=== PATIENT | female | born 1995 | race Caucasian/White ===

== ENCOUNTER 2018-09-18 03:20 | Inpatient (IN) | payer OTHER ==
[2018-09-18] MEDS ORDERED: PENICILLIN G-K 5 MILLION UNIT VIAL ONE ×2 (03:45→07:55)
[2018-09-18] MEDS ORDERED: OXYTOCIN 10 UNIT/ML VIAL ONE (03:46)
[2018-09-18] MEDS ORDERED: MISOPROSTOL 0.2 MG TABLET ONE (03:46)
[2018-09-18] MEDS ORDERED: OXYTOCIN/NORMAL SALINE 20 UNIT/1,000 ML RTUINJ ONE (03:46)
[2018-09-18] MEDS ORDERED: LIDOCAINE 1% INJ-PF (10 MG/ML) 30 ML SDV ONE (03:46)
[2018-09-18] MEDS: RINGERS SOLUTION,LACTATED 1,000 ML IV PRN ×3 (03:56→07:45)
[2018-09-18] MEDS ORDERED: RINGERS SOLUTION,LACTATED 1,000 ML IV ONE (04:00)
[2018-09-18] MEDS ORDERED: PENICILLIN G POTASSIUM 2,500,000 UNIT in DEXTROSE 5%-WATER 50 ML IV SCH (04:00)
[2018-09-18] MEDS ORDERED: PENICILLIN G POTASSIUM 5,000,000 UNIT in DEXTROSE 5%-WATER 100 ML IV ONE (04:00)
[2018-09-18 04:05] LABS: ABSOLUTE EOSINOPHILS # (AUTO) 0.1 10^3/uL (0.0-0.6); ABSOLUTE LYMPHOCYTES (AUTO) 1.8 10^3/uL (0.5-4.7); ABSOLUTE MONOCYTES (AUTO) 1.1 10^3/uL (0.1-1.4); ABSOLUTE NEUT (AUTO) 10.5 10^3/uL (1.7-8.2); BASOPHILS % (AUTO) 0.2 % (0-2); EOSINOPHILS % (AUTO) 0.9 % (0-6); HEMATOCRIT 32.5 % (36.0-47.0); HEMOGLOBIN 11.3 g/dL (12.0-15.5); LYMPHOCYTES % (AUTO) 13.3 % (13-45); MEAN CORPUSCULAR HEMOGLOBIN 30.1 pg (27.0-33.4); MEAN CORPUSCULAR HGB CONC 34.8 g/dL (32.0-36.0); MEAN CORPUSCULAR VOLUME 87 fl (80-97); MONOCYTES % (AUTO) 7.9 % (3-13); PLATELET COUNT 249 10^3/uL (150-450); RED BLOOD COUNT 3.75 10^6/uL (3.72-5.28); RED CELL DISTRIBUTION WIDTH 12.9 % (11.5-14.0); SEGMENTED NEUTROPHILS % (AUTO) 77.7 % (42-78); TOTAL CELLS COUNTED % (AUTO) 100 %; WHITE BLOOD COUNT 13.5 10^3/uL (4.0-10.5)
[2018-09-18 04:09] LABS: APPEARANCE,URINE CLEAR; BILIRUBIN,URINE NEGATIVE (NEGATIVE); COLOR,URINE STRAW; GLUCOSE, URINE NEGATIVE (NEGATIVE); KETONES,URINE NEGATIVE (NEGATIVE); LEUKOCYTE ESTERASE,URINE NEGATIVE (NEGATIVE); NITRITE,URINE NEGATIVE (NEGATIVE); PROTEIN,URINE NEGATIVE (NEGATIVE); URINE SPECIFIC GRAVITY 1.003; UROBILINOGEN,URINE NEGATIVE mg/dL (<2.0)
[2018-09-18 04:29] LABS: URINE AMPHETAMINES SCREEN NEGATIVE; URINE BARBITURATES SCREEN NEGATIVE; URINE BENZODIAZEPINES SCREEN NEGATIVE; URINE COCAINE SCREEN NEGATIVE; URINE MARIJUANA (THC) SCREEN NEGATIVE; URINE METHADONE SCREEN NEGATIVE; URINE PHENCYCLIDINE SCREEN NEGATIVE
[2018-09-18] MEDS ORDERED: EPHEDRINE SULFATE INJ 50 MG/1 ML AMPULE ONE (06:24)
[2018-09-18] MEDS ORDERED: FENTANYL/BUPIVACAINE/NS/PF 300 MCG/150 ML RTUINJ EPI ONE (06:25)
[2018-09-18] MEDS ORDERED: BUPIVACAINE HCL 0.5 % INJ/PF 30 ML SDV ONE (06:25)
[2018-09-18] MEDS ORDERED: BUPIVACAINE HCL 0.25 % INJ/PF (2.5 MG/1 ML) 30 ML VIAL ONE (06:26)
--- NOTE | 2018-09-18 07:28 | Admission Physical ---
Datetime Report Generated by CPN: 09/18/2018 07:27 CURRENT ADMISSION Chief Complaint: Uterine Contractions Indication for Induction: Not Applicable Admit Impression : Term, Intrauterine ; Active Labor Admit Plan: Admit to Unit; Initiate Labor Protocol ALLERGIES Medication Allergies: No Medication Allergies: No Known Allergies (09/18/2018) Latex: No Latex Allergies OBSTETRICAL HISTORY EDC: 09/18/2018 00:00 : 1 Para: 0 Term: 0 SAB: 0 IAB: 0 Ectopic: 0 Livin Cesareans: 0 VBACs: 0 Multiple Births: 0 Gestational Diabetes: No Rh Sensitization: No Incompetent Cervix: No PETER: No Infertility: No ART Treatment: No Uterine Anomaly: No IUGR: No Hx Previous C/S: No Macrosomia: No Hx Loss/Stillborn: No PIH: No Hx : No Placenta Previa/Abruption: No Depression/PP Depression: No PTL/PROM: No Post Hemorrhage: No Current Procedures: Ultrasound; NST Obstetrical History Comments: SEE RECORDS Alcohol: No Marijuana : No Cocaine: No Other Illicit Drugs: No Cigarettes: Never Smoker. [id number] MEDICAL HISTORY Diabetes: No Blood Transfusion: No Pulmonary Disease (Asthma, TB): No Breast Disease: No Hypertension: No Preanalytics Team Lead Surgery: No Heart Disease: No Hosp/Surgery: No Autoimmune Disorder: No Anesthetic Complications: No Kidney Disease: No Abnormal Pap Smear: No Neuro/Epilepsy: No Psychiatric Disorders: No Other Medical Diseases: No Hepatitis/Liver Disease: No Significant Family History: No Varicosities/Phlebitis: No Trauma/Violence : No Thyroid Dysfunction: No INFECTIOUS HISTORY Gonorrhea: No Genital Herpes: No Chlamydia: No Tuberculosis: No Syphilis: No Hepatitis: No HIV/AIDS Exposure: No Rash or Viral Illness: No HPV: No PHYSICAL EXAM General: Normal HEENT: Normal Neurologic: Normal Thyroid: Deferred Heart: Normal Lungs: Normal Breast: Deferred Back: Normal Abdomen: Normal Genitourinary Exam: Normal Extremities: Normal DTRs: Normal Pelvic Type: Adequate Vital Signs: Reviewed VAGINAL EXAM Dilatation: 4 Effacement: 80 Station: 0 MEMBRANES Membranes: Intact FETUS A EGA: 40.0 Monitoring: External US FHR- Baseline: 135 Variability: Moderate 6-25bpm Accelerations: 15X15 Decelerations: None Presentation: Vertex Admit Comment: 22yo at 40+0ega presents for active labor. GBS positive. PCN for GBS prophy. 4cm and active contractions. Admit to labor and delivery and anticipate . now s/p epidural and now with tachycardia - Dr. Virgen contacted for tachycardia. PLANS FOR LABOR AND DELIVERY Labor and Delivery: None Pain Management: Epidural Feeding Preference: Breast Benefit of Breast Feed Discussed: Yes Circumcision: N/A INFORMED CONSENT Informed Consent Obtained: Vaginal Delivery; Risks, Benefits and Alternatives Discussed Signature: with User ID: [email or web address]
--- NOTE | 2018-09-18 08:24 | EKG REPORT ---
SEVERITY:- OTHERWISE NORMAL ECG - SINUS TACHYCARDIA : Confirmed by: Kiersten Dunn MD 18-Sep-2018 08:23:04
--- NOTE | 2018-09-18 08:53 | L&D Progress Notes ---
PROGRESS NOTES Datetime Report Generated by CPN: 09/18/2018 08:52 PROGRESS NOTE Informed Consent Obtained: Vaginal Delivery; Risks, Benefits and Alternatives Discussed Comment: comfortable with epidural, irreg uc's, last extra, 5-6, 2nd dose of PCN, Cat 1 strip VAGINAL EXAM Dilatation: 4 Effacement: 80 Station: 0 LAST VAGINAL EXAM-NURSING Dilitation: 5-6 Dilitation: 4-5 Effacement: 80 Effacement: 80 Station: 0 Station: 0 MEMBRANES Membranes: Intact FETUS A Presentation: Vertex SIGNATURE SIGNATURE: ,[id number] SIGNATURE: [id number] Assignment: Albania Kingsley MD Signature: with User ID: [email or web address] : with User ID: [email or web address]
--- NOTE | 2018-09-18 10:31 | L&D Progress Notes ---
PROGRESS NOTES Datetime Report Generated by CPN: 09/18/2018 10:31 PROGRESS NOTE Comment: VE= complete, arom, clear fluid, will start pushing, Cat 1 strip VAGINAL EXAM Dilitation: 10.0 Effacement: 100 Station: 2 FETUS C SIGNATURE: [id number] Assignment: Albania Kingsley MD Signature: with User ID: [email or web address] : with User ID: [email or web address]
[2018-09-18] MEDS ORDERED: DIPH/PERTUSS(ACELL)/TETANUS VAC/PF 0.5 ML SYR (>=10YO) IM PRN ×2 (13:34→15:00)
[2018-09-18] MEDS ORDERED: BENZOCAINE/MENTHOL AEROSOL SPRAY 56 ML TOP PRN (13:34)
[2018-09-18] MEDS ORDERED: PROMETHAZINE HCL INJ 25 MG/1 ML VIAL IV PRN ×2 (13:34→15:00)
[2018-09-18] MEDS ORDERED: ACETAMINOPHEN WITH CODEINE #3 TABLET PO PRN ×2 (13:34)
[2018-09-18] MEDS ORDERED: DIPHENHYDRAMINE HCL 25 MG CAPSULE PO PRN (13:34)
[2018-09-18] MEDS ORDERED: PROMETHAZINE HCL 25 MG TABLET PO PRN (13:34)
[2018-09-18] MEDS ORDERED: PSEUDOEPHEDRINE HCL 30 MG TABLET PO PRN (13:34)
[2018-09-18] MEDS ORDERED: PROMETHAZINE HCL 25 MG SUPP.RECT PR PRN (13:34)
[2018-09-18] MEDS ORDERED: NA PHOS,M-B/NA PHOS,DI-BA (ADULT) 133 ML ENEMA PR PRN (13:34)
[2018-09-18] MEDS ORDERED: OXYTOCIN/NORMAL SALINE 20 UNIT/1,000 ML RTUINJ IV PRN (13:34)
[2018-09-18] MEDS ORDERED: MEASLES,MUMPS&RUBELLA VACC/PF 0.5 ML VIAL SUBCUT PRN ×2 (13:34→15:00)
[2018-09-18] MEDS ORDERED: GLYCERIN/WITCH HAZEL LEAF 1 EACH MED..PAD TP PRN (13:34)
[2018-09-18] MEDS ORDERED: DIBUCAINE 1% OINTMENT 28 GM TP PRN (13:34)
[2018-09-18] MEDS ORDERED: MAGNESIUM HYDROXIDE SUSP 30 ML UDCUP PO PRN (13:34)
[2018-09-18] MEDS ORDERED: ACETAMINOPHEN 650 MG SUPP.RECT PR PRN (13:34)
[2018-09-18] MEDS ORDERED: IBUPROFEN 800 MG TABLET ONE (14:12)
[2018-09-18] MEDS: IBUPROFEN 800 MG TABLET PO SCH ×2 (14:15→21:34)
[2018-09-18 14:36] LABS: HEMATOCRIT 30.9 % (36.0-47.0); HEMOGLOBIN 10.8 g/dL (12.0-15.5); MEAN CORPUSCULAR HEMOGLOBIN 29.9 pg (27.0-33.4); MEAN CORPUSCULAR HGB CONC 34.8 g/dL (32.0-36.0); MEAN CORPUSCULAR VOLUME 86 fl (80-97); PLATELET COUNT 223 10^3/uL (150-450); RED CELL DISTRIBUTION WIDTH 12.7 % (11.5-14.0); WHITE BLOOD COUNT 22.7 10^3/uL (4.0-10.5)
--- NOTE | 2018-09-18 14:38 | Delivery Summary ---
Del Sum A-C Datetime Report Generated by CPN: 09/18/2018 14:38 DELIVERY PERSONNEL DELIVERY PERSONNEL: [id number] Delivery Doctor:: Albania Kingsley MD Nurse Special Events Planner Certified:: Francoise Busch CNM Labor and Delivery Nurse:: Toshia Lin RN Labor and Delivery Nurse:: DARRYL Ruffin Nursery Nurse:: Hailee Centeno RN Predictive Maintenance Technician/COMPTOMETER OPERATOR: Kathryn Rees CST Predictive Maintenance Technician/COMPTOMETER OPERATOR: Helen Sheehan, BOOK CRITIC MATERNAL INFORMATION Delivery Anesthesia: Local; Epidural Medications After Delivery: Pitocin Bolus-Please Comment; Pitocin Drip 20 Units/1000ml NSS Maternal Complications: None Provider Comments: Dr. Kingsley called for VE due to maternal exhauston and runs of deep variables, vtx on perieum, VE applie by Dr. Kingsley, after delivery of vtx nuchal cord x 4, unable to reduce, clamped and cut with delivery of infant by Dr. Kingsley, spont delivery of placenta by me, grossly nl and intact, 2nd degree vaginal laceration repaired and left labial laceration repaired. cervix intact, rectum patent, FFFM, baby and mom in recovery in stable condition (Annotations: Data stored by N on behalf of user) LABOR SUMMARY EDC: 09/18/2018 00:00 No. Babies in Womb: 1 Attempted: No Labor Anesthesia: Epidural LABOR INFORMATION Reason for Induction: Not Applicable Onset of Labor: 09/18/2018 00:01 Complete Dilatation: 09/18/2018 10:26 Oxytocin: N/A Group B Beta Strep: positive Antibiotics # of Doses: 2 Antibiotics Time of Last Dose: 0800 Name of Antibiotic Given: PCN Steroids Given: None Reason Steroids Not Administered: Not Applicable MEMBRANES Membranes Rupture Method: Artificial Rupture of Membranes: 09/18/2018 10:26 Length of Rupture (hr): 2.08 Amniotic Fluid Color: Clear Amniotic Fluid Amount: Moderate Amniotic Fluid Odor: None STAGES OF LABOR Stage 1 hr: 10 Stage 1 min: 25 Stage 2 hr: 2 Stage 2 min: 5 Stage 3 hr: 0 Stage 3 min: 4 Total Time in Labor hr: 12 Total Time in Labor min: 34 VAGINAL DELIVERY Episiotomy: None Laceration #1: Vaginal; Periurethral Laceration Extension #1: Second Degree Other Laceration: LT PERIURETHRAL ABRASION Laceration Repair: Yes Laceration Repair Note: 2-0 and 3-0 vicryl Xylocaine 1% for repair Sponge Count Correct: N/A Sharps Count Correct: N/A BABY A INFORMATION Delivery Date/Time: 09/18/2018 12:31 Method of Delivery: Vaginal Born in Route : No : N/A Forceps: N/A Vacuum Extraction: N/A Shoulder Dystocia : No ASSISTED DELIVERY BABY A Catheter Prior to Procedure: No Position Vacuum/Forcep Apply: Left Occipital Anterior Vacuum Number of Pulls: 1 Vacuum Number of PopOffs: 0 Vacuum Maximum Pressure Obtained: 300 Reduce Pressure btwn Ctx: n/a Vacuum Transitions Manager Rn: kiwi Total Time Vacuum Applied: 25 seconds PRESENTATION/POSITION BABY A Presentation: Cephalic Cephalic Presentation: Vertex Vertex Position: Right Occipital Anterior Breech Presentation: N/A PLACENTA INFORMATION BABY A Placenta Delivery Time : 09/18/2018 12:35 Placenta Method of Delivery: Spontaneous Placenta Status: Delivered SCORES BABY A Heart Rate 1 min: >100 bpm Resp Effort 1 min: Good Cry Reflex Irritability 1 min: Cough or Sneeze or Pulls Away Muscle Tone 1 min: Some Flexion of Extremities Color 1 min: Blue/Pale Resuscitation Effort 1 min: Tactile Stimulation SCORE 1 MIN: 7 Heart Rate 5 min: >100 bpm Resp Effort 5 min: Good Cry Reflex Irritability 5 min: Cough or Sneeze or Pulls Away Muscle Tone 5 min: Active Motion Color 5 min: Body [place], Extremities Blue Resuscitation Effort 5 min: N/A SCORE 5 MIN: 9 Resuscitation Effort 10 min: N/A INFORMATION BABY A Gestational Age at Delivery: 40.0 Gestational Status: Full Term- 39- 40.6 Weeks Infant Outcome : Liveborn Condition : Stable Sex: Female IDENTIFICATION BABY A Infant Verification Date/Time: 09/18/2018 13:05 ID Band Number: [id number] Mother's Name Verified: Yes RN Verifying Infant: BL ROULUND, RN Additional Verifying Personnel: T LAURA, RN WEIGHT/LENGTH BABY A Birthweight (gm): 2911 Infant Weight (lb): 6 Infant Weight (oz): 7 Length (in): 20.50 Infant Length (cm): 52.07 CORD INFORMATION BABY A No. Cord Vessels: 3 Nuchal Cord : Tight nuchal x4 Cord Blood Taken: Yes-For Eval (Mom's Blood Type - or O+) (Annotations: Data stored by [facility] on behalf of user) Infant Suction: Mouth ASSESSMENT BABY A Complications: Multiple Variable Decels; Other Infant Complications- Other: nuchal x4 Respirations: Appears Normal Skin to Skin: Yes Skin to Skin Time (min): 100 Top Lift Nailer/ALS Called : No Care By: Hailee Centeno RN Transferred To: Remains with Mother BABY B INFORMATION : N/A
[2018-09-18] MEDS: FERROUS SULFATE 325 MG TABLET PO SCH (19:05)
[2018-09-18] MEDS: DOCUSATE SODIUM 100 MG CAPSULE PO SCH (19:05)
[2018-09-18] MEDS: FAMOTIDINE 20 MG TABLET PO SCH (21:34)
[2018-09-19] MEDS: IBUPROFEN 800 MG TABLET PO SCH ×3 (06:18→21:31)
[2018-09-19 06:36] LABS: HEMATOCRIT 28.9 % (36.0-47.0); HEMOGLOBIN 10.1 g/dL (12.0-15.5); MEAN CORPUSCULAR HEMOGLOBIN 30.4 pg (27.0-33.4); MEAN CORPUSCULAR HGB CONC 34.9 g/dL (32.0-36.0); MEAN CORPUSCULAR VOLUME 87 fl (80-97); PLATELET COUNT 221 10^3/uL (150-450); RED BLOOD COUNT 3.32 10^6/uL (3.72-5.28); WHITE BLOOD COUNT 16.4 10^3/uL (4.0-10.5)
--- NOTE | 2018-09-19 09:55 | PDOC PROGRESS REPORT ---
Subjective-OB Progress Note for:: 09/19/18 Subjective: Doing well, no c/o, hsb holding baby, voiding, scant bleeding Physical Exam (OB) Vital Signs: Temp Pulse Resp BP Pulse Ox 98.7 F 80 18 134/75 H 100 09/18/18 19:20 09/18/18 19:20 09/18/18 19:20 09/18/18 19:20 09/18/18 19:20 Intake & Output 09/18/18 09/19/18 09/20/18 06:59 06:59 06:59 Intake Total 131 735 Balance 131 735 Weight 75.3 kg - PIH/Pre-Eclampsia DTR's: 2 + Clonus: Negative Headache: Absent Epigastric Pain: No Visual Changes: No - Lochia Lochia Amount: Small 10-25 ml Lochia Color: Rubra/Red - Abdomen Description: Soft Hernia Present: No Fundal Description: Firm, Midline Fundal Height: u/3 - u/4 Objective-Diagnostic Laboratory: 09/19/18 06:30 09/18/18 09/19/18 14:24 06:30 WBC 22.7 H 16.4 H RBC 3.60 L 3.32 L Hgb 10.8 L 10.1 L Hct 30.9 L 28.9 L MCV 86 87 MCH 29.9 30.4 MCHC 34.8 34.9 RDW 12.7 13.0 Plt Count 223 221 Assessment and Plan(PN) - Assessment and Plan (1) Nuchal cord affecting delivery Is this a current diagnosis for this admission?: Yes (2) Vacuum extractor delivery, delivered Is this a current diagnosis for this admission?: Yes - Time Spent with Patient Time with patient: Less than 15 minutes Medications reviewed and adjusted accordingly: Yes - Disposition Anticipated Discharge: Home Within: within 24 hours
[2018-09-19] MEDS: FERROUS SULFATE 325 MG TABLET PO SCH ×2 (10:59→18:05)
[2018-09-19] MEDS: SENNOSIDES/DOCUSATE 8.6-50 MG 1 EACH TABLET PO SCH (10:59)
[2018-09-19] MEDS: DOCUSATE SODIUM 100 MG CAPSULE PO SCH ×2 (10:59→18:05)
[2018-09-19] MEDS: FAMOTIDINE 20 MG TABLET PO SCH ×2 (10:59→21:30)
[2018-09-19] MEDS: PRENATAL VITAMIN W DHA CAPSULE PO SCH (10:59)
[2018-09-20] MEDS: IBUPROFEN 800 MG TABLET PO SCH ×2 (05:42→13:22)
[2018-09-20 08:10] VITALS: BP 123/73
[2018-09-20] MEDS: DOCUSATE SODIUM 100 MG CAPSULE PO SCH (10:06)
[2018-09-20] MEDS: SENNOSIDES/DOCUSATE 8.6-50 MG 1 EACH TABLET PO SCH (10:06)
[2018-09-20] MEDS: FERROUS SULFATE 325 MG TABLET PO SCH (10:06)
[2018-09-20] MEDS: FAMOTIDINE 20 MG TABLET PO SCH (10:07)
[2018-09-20] MEDS: PRENATAL VITAMIN W DHA CAPSULE PO SCH (10:08)
--- NOTE | 2018-09-20 10:59 | PDOC PROGRESS REPORT ---
Subjective-OB Progress Note for:: 09/20/18 Subjective: Doing well, baby in room under bili lights, doing well, voiding, ambulating Physical Exam (OB) Vital Signs: Temp Pulse Resp BP Pulse Ox 98.0 F 90 18 123/73 99 09/20/18 10:37 09/20/18 10:37 09/20/18 10:37 09/20/18 07:29 09/20/18 10:37 Intake & Output 09/19/18 09/20/18 09/21/18 06:59 06:59 06:59 Intake Total 735 600 Balance 735 600 - PIH/Pre-Eclampsia DTR's: 2 + Clonus: Negative Headache: Absent Epigastric Pain: No Visual Changes: No - Lochia Lochia Amount: Scant < 10 ml Lochia Color: Rubra/Red - Abdomen Description: Soft Hernia Present: No Fundal Description: Firm, Midline Fundal Height: u/u - u/2 Objective-Diagnostic Laboratory: 09/19/18 06:30 Assessment and Plan(PN) - Assessment and Plan (1) Nuchal cord affecting delivery Is this a current diagnosis for this admission?: Yes (2) Vacuum extractor delivery, delivered Is this a current diagnosis for this admission?: Yes - Time Spent with Patient Time with patient: Less than 15 minutes Medications reviewed and adjusted accordingly: Yes - Disposition Anticipated Discharge: Home Within: within 24 hours
--- NOTE | 2018-09-20 11:04 | PDOC DISCHARGE SUMMARY ---
Final Diagnosis Discharge Date: 09/20/18 - Final Diagnosis (1) Nuchal cord affecting delivery Is this a current diagnosis for this admission?: Yes (2) Vacuum extractor delivery, delivered Is this a current diagnosis for this admission?: Yes Discharge Data - Discharge Medication Home Medications: No122/Iron/Folic Acid [ Multi Tablet] 1 each PO DAILY 09/18/18 Gestational Age: 40 Reason(s) for Admission: Onset of Labor, Group B Strep Positive Procedures: NST, Ultrasound Intrapartum Procedure(s): Vacuum Extraction Intrapartum Procedure Note: nuchal cord x 4 Complication(s): Laceration-Vaginal, Laceration-Labial Laceration-Degree: 2nd - Diagnosis Test Laboratory: Temp Pulse Resp BP Pulse Ox 98.0 F 90 18 123/73 99 09/20/18 10:37 09/20/18 10:37 09/20/18 10:37 09/20/18 07:29 09/20/18 10:37 09/18/18 09/18/18 09/18/18 03:35 03:54 14:24 RBC 3.75 3.60 L Hgb 11.3 L 10.8 L Hct 32.5 L 30.9 L Urine Opiates Screen NEGATIVE 09/19/18 06:30 RBC 3.32 L Hgb 10.1 L Hct 28.9 L Urine Opiates Screen - Discharge information/Instructions Discharge Activity: Activity As Tolerated, No Lifting Over 10 Pounds, No Lifting/Push/Pulling, Pelvic Rest Discharge Diet: As Tolerated, Regular Disposition: HOME, SELF-CARE Follow up with: [facility] in: 2, Weeks - baby under bili lights, [facility] room
[2018-09-20 11:37] LABS: HEMATOCRIT 29.9 % (36.0-47.0); HEMOGLOBIN 10.2 g/dL (12.0-15.5); MEAN CORPUSCULAR HEMOGLOBIN 30.1 pg (27.0-33.4); MEAN CORPUSCULAR HGB CONC 34.1 g/dL (32.0-36.0); MEAN CORPUSCULAR VOLUME 88 fl (80-97); PLATELET COUNT 241 10^3/uL (150-450); RED BLOOD COUNT 3.39 10^6/uL (3.72-5.28); RED CELL DISTRIBUTION WIDTH 13.3 % (11.5-14.0); WHITE BLOOD COUNT 14.5 10^3/uL (4.0-10.5)
== END 2018-09-20 16:35 | disposition home or self-care (01) | DRG 807 ==
LOC: LC 03:20 → LR 03:48 → 2S 15:32
PROVIDERS: ADMIT Obstetrics & Gynecology; ATTEND Obstetrics & Gynecology
PROC: 10D07Z6 Extraction of Products of Conception, Vacuum, Via Natural or Artificial Opening (ICD-10-PCS; principal; 2018-09-18)
PROC: 0KQM0ZZ Repair Perineum Muscle, Open Approach (ICD-10-PCS; 2018-09-18)
DX: O75.81 Maternal exhaustion complicating labor and delivery (principal); Z37.0 Single live birth; O69.1XX0 Labor and delivery complicated by cord around neck, with compression, not applicable or unspecified; O76 Abnormality in fetal heart rate and rhythm complicating labor and delivery; O70.1 Second degree perineal laceration during delivery; O70.0 First degree perineal laceration during delivery; O99.824 Streptococcus B carrier state complicating childbirth; Z3A.40 40 weeks gestation of pregnancy
CPT/HCPCS: 36415; 80307; 81005; 85025; 85027; 86592; 86850; 86900; 86901; 93005; 93010; J2540; J2590; J3010; J3490

== ENCOUNTER 2018-10-01 09:16 | Inpatient (IN) | payer OTHER ==
--- NOTE | 2018-10-01 09:55 | ER Document Report ---
ED General - General Chief Complaint: Abdominal Pain Stated Complaint: COLD SYMPTOMS Time Seen by Provider: 10/01/18 09:39 Notes: 22-year-old female to the emergency department chief complaint of tachycardia, shortness of breath and abdominal pain. Patient states that she woke up with the symptoms. [place] like she had a fever. Temperature at home 102. Heart was beginning to race. Patient states that she has had her heart race before rece ntly when she had the epidural. Currently when she arrived at triage her heart rate was in the 170s-180s. Patient complaining of some shortness of breath. Pain in the abdomen located in the right mid abdomen area. Hurts to push. Questionably radiating up into her right side of her chest. Currently afebrile. Patient is thirsty. Patient is breast-feeding. Never had a pulmonary embolism or DVT. Denies any leg pain or swelling. No other major issues during . Patient is 2 weeks . It is rated as a 4/5 on a numeric pain scale. It is allergic to ibuprofen. TRAVEL OUTSIDE OF THE [place] IN LAST 30 DAYS: No - HPI Onset: Just prior to arrival Onset/Duration: Sudden Quality of pain: Sharp, Stabbing Severity: Moderate Pain Level: 3 Associated symptoms: Chills, Fever, Shortness of breath - Related Data Allergies/Adverse Reactions: No Known Allergies Allergy (Verified 10/01/18 09:17) Past Medical History - General Information source: Patient - Social History Smoking Status: Never Smoker Frequency of alcohol use: None Drug Abuse: None Lives with: Spouse/Significant other Family History: Reviewed & Not Pertinent - Medical History Medical History: Negative Review of Systems - Review of Systems Constitutional: Fever. denies: Malaise, Weakness EENT: denies: Double vision, Difficulty swallowing, Throat swelling Cardiovascular: Chest pain, Heart racing, Lightheaded Respiratory: Short of breath. denies: Cough, Hurts to breathe, Wheezing Gastrointestinal: Abdominal pain. denies: Diarrhea, Nausea, Vomiting Genitourinary: denies: Burning, Dysuria, Discharge, Flank pain Female Genitourinary: Other - 2 weeks. denies: Vaginal discharge, Vaginal bleeding Musculoskeletal: denies: Back pain, Joint pain, Muscle stiffness, Leg swelling, Ankle swelling Hematologic/Lymphatic: denies: Anemia, Blood clots, Easy bleeding, Easy bruising Neurological/Psychological: denies: Confusion, Weakness, Seizure, Headaches, Numbness Physical Exam - Vital signs Vitals: Temp Pulse Resp BP Pulse Ox 98.8 F 185 H 16 138/82 H 100 10/01/18 09:23 10/01/18 09:23 10/01/18 09:23 10/01/18 09:23 10/01/18 09:23 Interpretation: Tachycardic - General General appearance: Appears well, Alert, Anxious - HEENT Head: Normocephalic, Atraumatic Eyes: Normal Pupils: PERRL - Respiratory Respiratory status: No respiratory distress Chest status: Nontender Breath sounds: Normal Chest palpation: Normal - Cardiovascular Rhythm: Tachycardia Heart sounds: Normal auscultation Murmur: No - Abdominal Inspection: Normal Distension: No distension Bowel sounds: Normal Tenderness: Nontender Organomegaly: No organomegaly - Back Back: Normal, Nontender - Extremities General upper extremity: Normal inspection, Nontender, Normal color, Normal ROM, Normal temperature General lower extremity: Normal inspection, Nontender, Normal color, Normal ROM, Normal temperature, Normal weight bearing. No: Ibrahima's sign - Neurological Neuro grossly intact: Yes Cognition: Normal Orientation: AAOx4 Rochelle Coma Scale Eye Opening: Spontaneous [place] Coma Scale Verbal: Oriented Rochelle Coma Scale Motor: Obeys Commands Nel Coma Scale Total: 15 Speech: Normal Motor strength normal: LUE, RUE, LLE, RLE Sensory: Normal - Psychological Associated symptoms: Normal affect, Normal mood - Skin Skin Temperature: Warm Skin Moisture: Dry Skin Color: Normal Course - Re-evaluation Re-evalutation: 10/01/18 10:51 At this time very concerning based on the fact the patient has extremely elevated heart rate and describing some dyspnea. Patient is obviously high risk for PE. Also having abdominal pain. Sometimes PEs can present as abdominal pain so will get CT angios as well as a CT abdomen as she does have some right lower quadrant/right mid abdomen tenderness with fever and a white blood cell count. Also could have endometritis being that she is so we will do the CT scan of the chest abdomen and pelvis. Her blood count elevated at 16,000 and mildly elevated lactate so we will recycle the lactic acids. 10/01/18 14:[address] mosqueda with [facility]. Will recommend she goes home on Augmentin, Tylenol and follow-up in the office. At this time patient's lactate is normalized. Patient feels much better. No PE or signs of significant abdominal pathology. We have treated with Rocephin. Patient seems comfortable with this plan. Will discharge shortly in stable condition. - Vital Signs Vital signs: Temp Pulse Resp BP Pulse Ox 98.8 F 185 H 15 123/80 100 10/01/18 09:23 10/01/18 09:23 10/01/18 11:43 10/01/18 11:43 10/01/18 11:43 - Laboratory Result Diagrams: 10/01/18 09:42 10/01/18 09:42 Laboratory results interpreted by me: 10/01/18 10/01/18 10/01/18 09:42 09:42 09:42 WBC 16.3 H Hgb 11.6 L Hct 34.2 L Seg Neutrophils % 81.5 H Lymphocytes % 12.4 L Absolute Neutrophils 13.3 H Lactic Acid 2.7 H Calcium 11.3 H Alkaline Phosphatase 170 H Creatine Kinase < 20 L Urine Ketones Urine Blood Ur Leukocyte Esterase 10/01/18 10:34 WBC Hgb Hct Seg Neutrophils % Lymphocytes % Absolute Neutrophils Lactic Acid Calcium Alkaline Phosphatase Creatine Kinase Urine Ketones TRACE H Urine Blood LARGE H Ur Leukocyte Esterase LARGE H Critical Care Note - Critical Care Note Total time excluding time spent on procedures (mins): 45 Discharge - Discharge Clinical Impression: Acute pyelonephritis Condition: Good Disposition: HOME, SELF-CARE Instructions: Pyelonephritis ([facility]) Additional Instructions: In the event that your symptoms are getting worse, your heart is racing, you have shortness of breath, worsening abdominal pain or pelvic pain or any other concerns please return immediately. Please follow-up with [facility] as soon as possible for repeat evaluation. Take your antibiotics as prescribed. As advised, we recommend using a breast pump for the next 24 hours and feeding your formula for the next 48 hours. Prescriptions: Amox Tr/Potassium Clavulanate [Augmentin 875-125 mg Tablet] 1 tab PO BID 14 Days #28 tablet Referrals: GABRIEL CHACKO MD [ACTIVE STAFF] - Follow up tomorrow
[2018-10-01] MEDS: NORMAL SALINE 1000 ML 1,000 ML IV PRN ×2 (09:56→12:20)
[2018-10-01] MEDS ORDERED: ACETAMINOPHEN 325 MG TABLET PO ONE (10:03)
--- NOTE | 2018-10-01 10:25 | EKG REPORT ---
SEVERITY:- ABNORMAL ECG - SVT REPOL ABNRM SUGGESTS ISCHEMIA, DIFFUSE LEADS PROLONGED QT INTERVAL : Confirmed by: Myra Franco 01-Oct-2018 10:25:03
[2018-10-01 10:26] LABS: ABSOLUTE EOSINOPHILS # (AUTO) 0.1 10^3/uL (0.0-0.6); ABSOLUTE MONOCYTES (AUTO) 0.8 10^3/uL (0.1-1.4); ABSOLUTE NEUT (AUTO) 13.3 10^3/uL (1.7-8.2); BASOPHILS % (AUTO) 0.3 % (0-2); EOSINOPHILS % (AUTO) 0.7 % (0-6); HEMATOCRIT 34.2 % (36.0-47.0); HEMOGLOBIN 11.6 g/dL (12.0-15.5); LYMPHOCYTES % (AUTO) 12.4 % (13-45); MEAN CORPUSCULAR HEMOGLOBIN 29.7 pg (27.0-33.4); MEAN CORPUSCULAR HGB CONC 33.8 g/dL (32.0-36.0); MEAN CORPUSCULAR VOLUME 88 fl (80-97); MONOCYTES % (AUTO) 5.1 % (3-13); PLATELET COUNT 402 10^3/uL (150-450); RED CELL DISTRIBUTION WIDTH 12.9 % (11.5-14.0); SEGMENTED NEUTROPHILS % (AUTO) 81.5 % (42-78); TOTAL CELLS COUNTED % (AUTO) 100 %; WHITE BLOOD COUNT 16.3 10^3/uL (4.0-10.5)
[2018-10-01 10:45] LABS: ALANINE AMINOTRANSFERASE 23 U/L (9-52); ALBUMIN 4.3 g/dL (3.5-5.0); ALKALINE PHOSPHATASE 170 U/L (38-126); ANION GAP 11 (5-19); ASPARTATE AMINO TRANSFERASE 24 U/L (14-36); BILIRUBIN,DIRECT 0.1 mg/dL (0.0-0.4); BILIRUBIN,TOTAL 0.4 mg/dL (0.2-1.3); BLOOD UREA NITROGEN 7 mg/dL (7-20); CALCIUM 11.3 mg/dL (8.4-10.2); CARBON DIOXIDE 25 mmol/L (22-30); CHLORIDE 104 mmol/L (98-107); GLUCOSE 99 mg/dL (75-110); POTASSIUM 3.6 mmol/L (3.6-5.0); SODIUM 139.8 mmol/L (137-145); TOTAL PROTEIN 7.3 g/dL (6.3-8.2)
[2018-10-01 10:47] LABS: CREATINE KINASE < 20 U/L (30-135)
[2018-10-01 10:48] LABS: A TYPE INFLUENZA AG NEGATIVE (NEGATIVE)
[2018-10-01 10:49] LABS: APPEARANCE,URINE SLIGHTLY-CLOUDY; BILIRUBIN,URINE NEGATIVE (NEGATIVE); COLOR,URINE YELLOW; GLUCOSE, URINE NEGATIVE (NEGATIVE); KETONES,URINE TRACE mg/dL (NEGATIVE); LEUKOCYTE ESTERASE,URINE LARGE (NEGATIVE); NITRITE,URINE NEGATIVE (NEGATIVE); PROTEIN,URINE NEGATIVE (NEGATIVE); URIC ACID CRYSTALS,URINE FEW /HPF; URINE SPECIFIC GRAVITY 1.005; UROBILINOGEN,URINE NEGATIVE mg/dL (<2.0)
[2018-10-01 10:49] LABS: B INFLUENZA AG NEGATIVE (NEGATIVE)
--- NOTE | 2018-10-01 10:50 | RADIOLOGY REPORT (SQ) ---
EXAM DESCRIPTION: CHEST SINGLE VIEW COMPLETED DATE/TIME: 10/01/2018 10:43 am REASON FOR STUDY: sob COMPARISON: None. EXAM PARAMETERS: NUMBER OF VIEWS: One view. TECHNIQUE: Single frontal radiographic view of the chest acquired. RADIATION DOSE: NA LIMITATIONS: None. FINDINGS: LUNGS AND PLEURA: No opacities, masses or pneumothorax. No pleural effusion. MEDIASTINUM AND HILAR STRUCTURES: No masses. Contour normal. HEART AND VASCULAR STRUCTURES: Heart normal in size. Normal vasculature. BONES: No acute findings. HARDWARE: None in the chest. OTHER: No other significant finding. IMPRESSION: NO ACUTE RADIOGRAPHIC FINDING IN THE CHEST. TECHNICAL DOCUMENTATION: JOB ID: [id number] [employer] ([employer])- All Rights Reserved Reading location - IP/workstation name: [email or web address]
[2018-10-01 10:56] LABS: CREATINE KINASE MB < 0.22 ng/mL (<4.55); TROPONIN I < 0.012 ng/mL
[2018-10-01] MEDS ORDERED: CEFTRIAXONE INJ 1000 MG VIAL IV ONE (11:46)
--- NOTE | 2018-10-01 12:11 | RADIOLOGY REPORT (SQ) ---
EXAM DESCRIPTION: CT ABD/PELVIS WITH IV ONLY COMPLETED DATE/TIME: 10/01/2018 11:30 am REASON FOR STUDY: right sided abd pain, fever and tachyc COMPARISON: None. TECHNIQUE: CT scan of the abdomen and pelvis performed using helical scanning technique with dynamic intravenous contrast injection. No oral contrast. Images reviewed with lung, soft tissue, and bone windows. Reconstructed coronal and sagittal MPR images reviewed. Delayed images for evaluation of the urinary system also acquired. All images stored on PACS. All CT scanners at this facility use dose modulation, iterative reconstruction, and/or weight based d osing when appropriate to reduce radiation dose to as low as reasonably achievable (ALARA). [facility]: Dose Right [facility]: CareDose [facility]: Dose Right [facility]: Teradose 4D [facility]: ConnectTo[employer] CONTRAST TYPE AND DOSE: 67 mL Omnipaque 350- low osmolar. RENAL FUNCTION: BUN 7 creatinine 0.71. RADIATION DOSE: . LIMITATIONS: None. FINDINGS: LOWER CHEST: No significant findings. No nodules or infiltrates. LIVER: Normal size. No masses. No dilated ducts. SPLEEN: Normal size. No focal lesions. PANCREAS: No masses. No significant calcifications. No adjacent inflammation or peripancreatic fluid collections. Pancreatic duct not dilated. GALLBLADDER: No identified stones by CT criteria. No inflammatory changes to suggest cholecystitis. ADRENAL GLANDS: No significant masses or asymmetry. RIGHT KIDNEY AND URETER: No solid masses. No significant calcifications. No hydronephrosis or hyd roureter. LEFT KIDNEY AND URETER: No solid masses. No significant calcifications. No hydronephrosis or hydr oureter. AORTA AND VESSELS: No aneurysm. No dissection. Renal arteries, SMA, celiac without stenosis. RETROPERITONEUM: No retroperitoneal adenopathy, hemorrhage or masses. BOWEL AND PERITONEAL CAVITY: No masses or inflammatory changes. No free fluid or peritoneal masses. APPENDIX: Not visualized. PELVIS: uterus. Fluid in the endometrial cavity. No mass. No free fluid. Normal bladder . ABDOMINAL WALL: No masses. No hernias. BONES: No significant or acute findings. OTHER: No other significant finding. IMPRESSION: UTERUS. NO SIGNIFICANT OR ACUTE FINDING IN THE ABDOMEN OR PELVIS ON CT SCAN WITH IV CONTRAST. TECHNICAL DOCUMENTATION: JOB ID: [id number] Quality ID # [id number]: Final reports with documentation of one or more dose reduction techniques (e.g., Au tomated exposure control, adjustment of the mA and/or kV according to patient size, use of iterative reconstruction technique) 2010 [employer]- All Rights Reserved Reading location - IP/workstation name: [email or web address]
--- NOTE | 2018-10-01 12:14 | RADIOLOGY REPORT (SQ) ---
EXAM DESCRIPTION: CTA CHEST COMPLETED DATE/TIME: 10/01/2018 11:30 am REASON FOR STUDY: sob, tachy COMPARISON: None. TECHNIQUE: CT scan of the chest performed using helical scanning technique with dynamic intravenous contrast injection. Images reviewed with lung, soft tissue and bone windows. Reconstructed coronal and sagittal MPR images reviewed. Additional 3 dimensional post-processing performed to develop Maximal Intensity Projection images (AR P). All images stored on PACS. All CT scanners at this facility use dose modulation, iterative reconstruction, and/or weight based d osing when appropriate to reduce radiation dose to as low as reasonably achievable (ALARA). [facility]: Dose Right [facility]: CareDose [facility]: Dose Right [facility]: Teradose 4D [facility]: [place] [employer] CONTRAST TYPE AND DOSE: contrast/concentration: Isovue 350.00 mg/ml; Total Contrast Delivered: 67.0 ml; Total Saline Delivered: 90.0 ml Contrast bolus adequate for pulmonary arteries and aorta. RENAL FUNCTION: BUN 7 creatinine 0.71. RADIATION DOSE: CT Rad equipment meets quality standard of care and radiation dose reduction techniq ues were employed. CTDIvol: 11.9 - 14.4 mGy. DLP: 1961 mGy-cm. . LIMITATIONS: None. FINDINGS: LUNGS AND PLEURA: No masses, infiltrates, or pneumothorax. No pleural effusions or pleura l calcifications. AORTA AND GREAT VESSELS: No aneurysm. No dissection. HEART: No pericardial effusion. No significant coronary artery calcifications. PULMONARY ARTERIES: No emboli visualized in the main pulmonary arteries or the segmental branches. HILAR AND MEDIASTINAL STRUCTURES: No identified masses or abnormal nodes. HARDWARE: None in the chest. UPPER ABDOMEN: No significant findings. Limited exam. THYROID AND OTHER SOFT TISSUES: No masses. No adenopathy. BONES: No acute or significant finding. 3D MIPS: Confirm above findings. OTHER: No other significant finding. IMPRESSION: NORMAL CTA OF THE CHEST. NO PULMONARY EMBOLI. COMMENT: Quality ID # [id number]: Final reports with documentation of one or more dose reduction techniques (e.g., Automated exposure control, adjustment of the mA and/or kV according to patient size, use of iterative reconstruction technique) TECHNICAL DOCUMENTATION: JOB ID: [id number] [employer]- All Rights Reserved Reading location - IP/workstation name: [email or web address] [id number]
[2018-10-01] MEDS ORDERED: NORMAL SALINE 500 ML IV ONE ×2 (12:41→15:18)
--- NOTE | 2018-10-01 15:55 | PDOC H&P ---
History of Present Illness Admission Date/PCP: 10/01/18 15:34 Patient complains of: She complains of fever on and off for 3-4 days and right lower quadrant tenderness History of Present Illness: STEW LÓPEZ is a 22 year old presents [facility], complaining of fever and chills on and off for 3-4 days. Patient awoke this morning with right lower quadrant tenderness. She is status post vacuum-assisted vaginal delivery on September 18. She is breast-feeding, which is going well. She has had no change in her lochia. She denies any foul odor or change in color. Patient stated that she did have some nausea today. She denies vomiting. She denies diarrhea. She is eating, voiding and ambulating without difficulty. Past Medical History LMP: post Sep 18 Gynecological Infection: No 1 Baby 1 Delivery: Vacuum Extraction Past Surgical History Past Surgical History: Reports: None Social History Lives with: Spouse/Significant other Smoking Status: Never Smoker Frequency of Alcohol Use: Rare Hx Recreational Drug Use: No Hx Prescription Drug Abuse: No Family History Family History: Reviewed & Not Pertinent Parental Family History Reviewed: No - N/A Children Family History Reviewed: NA Sibling(s) Family History Reviewed.: NA Medication/Allergy Home Medications: No122/Iron/Folic Acid [ Multi Tablet] 1 each PO DAILY 09/18/18 Amox Tr/Potassium Clavulanate [Augmentin 875-125 mg Tablet] 1 tab PO BID 14 Days #28 tablet 10/01/18 Allergies/Adverse Reactions: No Known Allergies Allergy (Verified 10/01/18 09:17) Review of Systems Constitutional: PRESENT: chills, fever(s) Cardiovascular: ABSENT: as per HPI, chest pain, dyspnea on exertion, edema, orthropnea, palpitations, other Respiratory: ABSENT: as per HPI, cough, dyspnea, hemoptysis, sputum, other Gastrointestinal: PRESENT: abdominal pain - Right lower quadrant, nausea Genitourinary: ABSENT: as per HPI, difficulty urinating, dysuria, hematuria, nocturia, other Physical Exam - Physical Exam Vital Signs: Temp Pulse Resp BP Pulse Ox 98.8 F 185 H 15 123/80 100 10/01/18 09:23 10/01/18 09:23 10/01/18 11:43 10/01/18 11:43 10/01/18 11:43 Intake & Output 09/30/18 10/01/18 10/02/18 06:59 06:59 06:59 Intake Total 2500 Balance 2500 Weight 66.4 kg General appearance: PRESENT: no acute distress Respiratory exam: PRESENT: clear to auscultation darcy Cardiovascular exam: PRESENT: RRR, tachycardia GI/Abdominal exam: PRESENT: normal bowel sounds, soft, tenderness - Mild, right lower quadrant Extremities exam: ABSENT: calf tenderness, clubbing, full ROM, joint swelling, pedal edema, tenderness, +1 edema, +2 edema, other - Gynecological Exam Vagina: normal Uterus: normal - Mild right lower quadrant tenderness, may be associated with uterus Result Laboratory Results: 10/01/18 09:42 10/01/18 09:42 10/01/18 10/01/18 10/01/18 09:42 09:42 09:42 WBC 16.3 H RBC 3.90 Hgb 11.6 L Hct 34.2 L MCV 88 MCH 29.7 MCHC 33.8 RDW 12.9 Plt Count 402 Seg Neutrophils % 81.5 H Lymphocytes % 12.4 L Monocytes % 5.1 Eosinophils % 0.7 Basophils % 0.3 Absolute Neutrophils 13.3 H Absolute Lymphocytes 2.0 Absolute Monocytes 0.8 Absolute Eosinophils 0.1 Absolute Basophils 0.0 Sodium 139.8 Potassium 3.6 Chloride 104 Carbon Dioxide 25 Anion Gap 11 BUN 7 Creatinine 0.71 Est GFR ( Amer) > 60 Est GFR (Non-Af Amer) > 60 Glucose 99 Lactic Acid Calcium 11.3 H Total Bilirubin 0.4 AST 24 ALT 23 Alkaline Phosphatase 170 H Total Protein 7.3 Albumin 4.3 Urine Color Urine Appearance Urine pH Ur Specific [place] Urine Protein Urine Glucose (UA) Urine Ketones Urine Blood Urine Nitrite Ur Leukocyte Esterase Urine WBC (Auto) Urine RBC (Auto) 10/01/18 10/01/18 10/01/18 09:42 10:34 14:30 WBC RBC Hgb Hct MCV MCH MCHC RDW Plt Count Seg Neutrophils % Lymphocytes % Monocytes % Eosinophils % Basophils % Absolute Neutrophils Absolute Lymphocytes Absolute Monocytes Absolute Eosinophils Absolute Basophils Sodium Potassium Chloride Carbon Dioxide Anion Gap BUN Creatinine Est GFR ( Amer) Est GFR (Non-Af Amer) Glucose Lactic Acid 2.7 H 0.8 Calcium Total Bilirubin AST ALT Alkaline Phosphatase Total Protein Albumin Urine Color YELLOW Urine Appearance SLIGHTLY-CLOUDY Urine pH 7.0 Ur Specific [place] 1.005 Urine Protein NEGATIVE Urine Glucose (UA) NEGATIVE Urine Ketones TRACE H Urine Blood LARGE H Urine Nitrite NEGATIVE Ur Leukocyte Esterase LARGE H Urine WBC (Auto) >182 Urine RBC (Auto) 63 10/01/18 10/01/18 09:42 09:42 Creatine Kinase < 20 L CK-MB (CK-2) < 0.22 Troponin I < 0.012 Impressions: Chest X-Ray 10/01/18 09:52 IMPRESSION: NO ACUTE RADIOGRAPHIC FINDING IN THE CHEST. Abdomen/Pelvis CT 10/01/18 10:45 IMPRESSION: UTERUS. NO SIGNIFICANT OR ACUTE FINDING IN THE ABDOMEN OR PELVIS ON CT SCAN WITH IV CONTRAST. Chest/Abdomen CTA 10/01/18 10:45 IMPRESSION: NORMAL CTA OF THE CHEST. NO PULMONARY EMBOLI. Assessment & Plan - Diagnosis (1) Right lower quadrant abdominal pain Is this a current diagnosis for this admission?: Yes (2) Leukocytosis Is this a current diagnosis for this admission?: Yes (3) Fever of unknown origin Is this a current diagnosis for this admission?: Yes (4) Endometritis following delivery Is this a current diagnosis for this admission?: Yes - Time Time Spent: 30 to 50 Minutes Within: within 48 hours - Plan Summary Plan Summary: 1. IV antibiotics 2. Antipyretics 3. IV fluids
[2018-10-01] MEDS ORDERED: GENTAMICIN SULFATE INJ 80 MG/2 ML VIAL IV SCH (16:00)
[2018-10-01] MEDS ORDERED: ACETAMINOPHEN 650 MG SUPP.RECT PR PRN (16:00)
[2018-10-01] MEDS ORDERED: PROMETHAZINE HCL INJ 25 MG/1 ML VIAL IV PRN (16:01)
[2018-10-01 16:46] LABS: FREE T4 (FREE THYROXINE) 1.85 ng/dL (0.78-2.19)
[2018-10-01 17:00] LABS: THYROID STIMULATING HORMONE 0.15 uIU/mL (0.47-4.68)
[2018-10-01] MEDS ORDERED: CLINDAMYCIN 900 MG/D5W RTU 900 MG/50 ML RTUPB IV SCH (17:00)
[2018-10-01] MEDS: DEXTROSE 5% IV SCH (18:08)
[2018-10-01] MEDS: GENTAMICIN SULFATE IV SCH (18:08)
[2018-10-01] MEDS: WATER IV SCH (18:08)
--- NOTE | 2018-10-01 18:33 | PDOC CONSULTATION ---
Consultation Consult Date: 10/01/18 Consult reason:: sepsis History of Present Illness Admission Date/PCP: 10/01/18 15:34 History of Present Illness: STEW LÓPEZ is a 22 year old female with no significant past medical history who is presenting with abdominal pain, fever or chills. Patient recently delivered via vacuum-assisted vaginal delivery 2 weeks ago. She says she continued to have on and off vaginal bleeding after delivery but this has started to improve. She does report of unusually foul smelling vaginal di scharge which she describe as "clear but mucousy". She says she had some colds 4 days ago but started devloping fever and chills as well. She also complained of vague abdominal pain more on the hypogastric and RLQ area. She denies dysuria, urinary frequency, flank pain. She is being admitted for possible endometritis. Past Surgical History Past Surgical History: Reports: None Social History Lives with: Spouse/Significant other Smoking Status: Never Smoker Frequency of Alcohol Use: Rare Hx Recreational Drug Use: No Hx Prescription Drug Abuse: No Family History Family History: Reviewed & Not Pertinent Parental Family History Reviewed: Yes - no premature CAD Children Family History Reviewed: No Sibling(s) Family History Reviewed.: No Medication/Allergy Home Medications: No Home Medications 10/01/18 Allergies/Adverse Reactions: No Known Allergies Allergy (Verified 10/01/18 09:17) Review of Systems All systems: reviewed and no additional remarkable complaints except as stated - as mentioned in HPI Physical Exam Vital Signs: Temp Pulse Resp BP Pulse Ox 101.6 F H 185 H 17 144/94 H 100 10/01/18 18:06 10/01/18 09:23 10/01/18 18:06 10/01/18 18:06 10/01/18 18:06 Intake & Output 09/30/18 10/01/18 10/02/18 06:59 06:59 06:59 Intake Total 2500 Balance 2500 Weight 146 lb 6.191 oz General appearance: PRESENT: no acute distress, well-developed, well-nourished Head exam: PRESENT: atraumatic, normocephalic Eye exam: PRESENT: conjunctiva pink, EOMI, PERRLA. ABSENT: scleral icterus Ear exam: PRESENT: normal external ear exam Mouth exam: PRESENT: moist, tongue midline Neck exam: ABSENT: carotid bruit, JVD, lymphadenopathy, thyromegaly Respiratory exam: PRESENT: clear to auscultation darcy. ABSENT: rales, rhonchi, wheezes Cardiovascular exam: PRESENT: RRR. ABSENT: diastolic murmur, rubs, systolic murmur Pulses: PRESENT: normal dorsalis pedis pul GI/Abdominal exam: PRESENT: normal bowel sounds, soft, tenderness - very minimal direct tenderness on the RLQ and hypogastric area, negative Rovsing's signs, no rebound tenderness or peritoneal signs. ABSENT: distended, guarding, mass, organolmegaly, rebound Rectal exam: PRESENT: deferred Neurological exam: PRESENT: alert, awake, oriented to person, oriented to place, oriented to time, oriented to situation, CN II-XII grossly intact. ABSENT: motor sensory deficit Results Laboratory Results: 10/01/18 09:42 10/01/18 09:42 10/01/18 10/01/18 10/01/18 09:42 09:42 09:42 WBC 16.3 H RBC 3.90 Hgb 11.6 L Hct 34.2 L MCV 88 MCH 29.7 MCHC 33.8 RDW 12.9 Plt Count 402 Seg Neutrophils % 81.5 H Lymphocytes % 12.4 L Monocytes % 5.1 Eosinophils % 0.7 Basophils % 0.3 Absolute Neutrophils 13.3 H Absolute Lymphocytes 2.0 Absolute Monocytes 0.8 Absolute Eosinophils 0.1 Absolute Basophils 0.0 Sodium 139.8 Potassium 3.6 Chloride 104 Carbon Dioxide 25 Anion Gap 11 BUN 7 Creatinine 0.71 Est GFR ( Amer) > 60 Est GFR (Non-Af Amer) > 60 Glucose 99 Lactic Acid Calcium 11.3 H Total Bilirubin 0.4 AST 24 ALT 23 Alkaline Phosphatase 170 H Total Protein 7.3 Albumin 4.3 TSH Free T4 Urine Color Urine Appearance Urine pH Ur Specific [place] Urine Protein Urine Glucose (UA) Urine Ketones Urine Blood Urine Nitrite Ur Leukocyte Esterase Urine WBC (Auto) Urine RBC (Auto) 10/01/18 10/01/18 10/01/18 09:42 09:42 10:34 WBC RBC Hgb Hct MCV MCH MCHC RDW Plt Count Seg Neutrophils % Lymphocytes % Monocytes % Eosinophils % Basophils % Absolute Neutrophils Absolute Lymphocytes Absolute Monocytes Absolute Eosinophils Absolute Basophils Sodium Potassium Chloride Carbon Dioxide Anion Gap BUN Creatinine Est GFR ( Amer) Est GFR (Non-Af Amer) Glucose Lactic Acid 2.7 H Calcium Total Bilirubin AST ALT Alkaline Phosphatase Total Protein Albumin TSH 0.15 L Free T4 1.85 Urine Color YELLOW Urine Appearance SLIGHTLY-CLOUDY Urine pH 7.0 Ur Specific [place] 1.005 Urine Protein NEGATIVE Urine Glucose (UA) NEGATIVE Urine Ketones TRACE H Urine Blood LARGE H Urine Nitrite NEGATIVE Ur Leukocyte Esterase LARGE H Urine WBC (Auto) >182 Urine RBC (Auto) 63 10/01/18 14:30 WBC RBC Hgb Hct MCV MCH MCHC RDW Plt Count Seg Neutrophils % Lymphocytes % Monocytes % Eosinophils % Basophils % Absolute Neutrophils Absolute Lymphocytes Absolute Monocytes Absolute Eosinophils Absolute Basophils Sodium Potassium Chloride Carbon Dioxide Anion Gap BUN Creatinine Est GFR ( Amer) Est GFR (Non-Af Amer) Glucose Lactic Acid 0.8 Calcium Total Bilirubin AST ALT Alkaline Phosphatase Total Protein Albumin TSH Free T4 Urine Color Urine Appearance Urine pH Ur Specific [place] Urine Protein Urine Glucose (UA) Urine Ketones Urine Blood Urine Nitrite Ur Leukocyte Esterase Urine WBC (Auto) Urine RBC (Auto) 10/01/18 10/01/18 09:42 09:42 Creatine Kinase < 20 L CK-MB (CK-2) < 0.22 Troponin I < 0.012 Impressions: Chest X-Ray 10/01/18 09:52 IMPRESSION: NO ACUTE RADIOGRAPHIC FINDING IN THE CHEST. Abdomen/Pelvis CT 10/01/18 10:45 IMPRESSION: UTERUS. NO SIGNIFICANT OR ACUTE FINDING IN THE ABDOMEN OR PELVIS ON CT SCAN WITH IV CONTRAST. Chest/Abdomen CTA 10/01/18 10:45 IMPRESSION: NORMAL CTA OF THE CHEST. NO PULMONARY EMBOLI. Assessment & Plan - Diagnosis (1) Sepsis Is this a current diagnosis for this admission?: Yes Plan: Possibly from endometritis. UA does show pyuria but her presentation is more consistent with endometritis. She has been started on antibiotics by Ob-Sack Department Supervisor. Blood and urine cultures also pending. Noted CT results. She has RLq pain. Noted appendix was not visualized on CT but PE is not consistent with appendicitis at this time. Continue IV fluids at 125 cc/hr. Will cycle lactic acid. (2) Endometritis following delivery Is this a current diagnosis for this admission?: Yes Plan: As per number 1. - Time Time Spent: 30 to 50 Minutes
[2018-10-01] MEDS: CLINDAMYCIN 900 MG/D5W RTU 900 MG/50 ML RTUPB IV SCH (19:48)
[2018-10-01] MEDS: RINGERS SOLUTION,LACTATED 1,000 ML IV PRN (21:14)
[2018-10-02] MEDS: GENTAMICIN SULFATE IV SCH ×3 (01:58→17:15)
[2018-10-02] MEDS: WATER IV SCH ×3 (01:58→17:15)
[2018-10-02] MEDS: DEXTROSE 5% IV SCH ×3 (01:58→17:15)
[2018-10-02] MEDS: CLINDAMYCIN 900 MG/D5W RTU 900 MG/50 ML RTUPB IV SCH ×3 (05:16→22:22)
[2018-10-02] MEDS: RINGERS SOLUTION,LACTATED 1,000 ML IV PRN ×2 (05:17→14:38)
[2018-10-02 09:19] LABS: ABSOLUTE BASOPHILS # (AUTO) 0.1 10^3/uL (0.0-0.2); ABSOLUTE EOSINOPHILS # (AUTO) 0.1 10^3/uL (0.0-0.6); ABSOLUTE LYMPHOCYTES (AUTO) 1.6 10^3/uL (0.5-4.7); ABSOLUTE MONOCYTES (AUTO) 1.2 10^3/uL (0.1-1.4); ABSOLUTE NEUT (AUTO) 8.4 10^3/uL (1.7-8.2); BASOPHILS % (AUTO) 1.3 % (0-2); EOSINOPHILS % (AUTO) 0.5 % (0-6); HEMATOCRIT 30.8 % (36.0-47.0); HEMOGLOBIN 10.8 g/dL (12.0-15.5); MEAN CORPUSCULAR HEMOGLOBIN 30.1 pg (27.0-33.4); MEAN CORPUSCULAR HGB CONC 35.2 g/dL (32.0-36.0); MEAN CORPUSCULAR VOLUME 86 fl (80-97); MONOCYTES % (AUTO) 10.7 % (3-13); PLATELET COUNT 320 10^3/uL (150-450); RED CELL DISTRIBUTION WIDTH 13.1 % (11.5-14.0); SEGMENTED NEUTROPHILS % (AUTO) 73.5 % (42-78); TOTAL CELLS COUNTED % (AUTO) 100 %; WHITE BLOOD COUNT 11.4 10^3/uL (4.0-10.5)
[2018-10-02 09:27] LABS: ANION GAP 11 (5-19); BLOOD UREA NITROGEN 7 mg/dL (7-20); CALCIUM 9.9 mg/dL (8.4-10.2); CARBON DIOXIDE 22 mmol/L (22-30); CHLORIDE 108 mmol/L (98-107); GLUCOSE 74 mg/dL (75-110); POTASSIUM 3.7 mmol/L (3.6-5.0); SODIUM 140.8 mmol/L (137-145)
--- NOTE | 2018-10-02 10:06 | PDOC PROGRESS REPORT ---
Subjective Progress Note for:: 10/02/18 Subjective:: pt c/o loose stools Reason For Visit: ENDOMETRITIS VS PYELONEPHRITIS; POSS SEPSIS Physical Exam - Physical Exam Vital Signs: Temp Pulse Resp BP Pulse Ox 98.6 F 120 H 16 132/81 H 100 10/02/18 07:57 10/02/18 07:57 10/02/18 07:57 10/02/18 07:57 10/02/18 07:57 Intake & Output 10/01/18 10/02/18 10/03/18 06:59 06:59 06:59 Intake Total 5105.750 Balance 5105.750 Weight 73.3 kg General appearance: PRESENT: no acute distress GI/Abdominal exam: PRESENT: soft - Gynecological Exam Vagina: normal Uterus: normal - Mild right lower quadrant tenderness, may be associated with uterus Result Laboratory Results: 10/02/18 05:36 10/02/18 05:36 10/01/18 10/01/18 10/01/18 09:42 09:42 09:42 WBC 16.3 H RBC 3.90 Hgb 11.6 L Hct 34.2 L MCV 88 MCH 29.7 MCHC 33.8 RDW 12.9 Plt Count 402 Seg Neutrophils % 81.5 H Lymphocytes % 12.4 L Monocytes % 5.1 Eosinophils % 0.7 Basophils % 0.3 Absolute Neutrophils 13.3 H Absolute Lymphocytes 2.0 Absolute Monocytes 0.8 Absolute Eosinophils 0.1 Absolute Basophils 0.0 Sodium 139.8 Potassium 3.6 Chloride 104 Carbon Dioxide 25 Anion Gap 11 BUN 7 Creatinine 0.71 Est GFR ( Amer) > 60 Est GFR (Non-Af Amer) > 60 Glucose 99 Lactic Acid Calcium 11.3 H Total Bilirubin 0.4 AST 24 ALT 23 Alkaline Phosphatase 170 H Total Protein 7.3 Albumin 4.3 TSH Free T4 Urine Color Urine Appearance Urine pH Ur Specific [place] Urine Protein Urine Glucose (UA) Urine Ketones Urine Blood Urine Nitrite Ur Leukocyte Esterase Urine WBC (Auto) Urine RBC (Auto) 10/01/18 10/01/18 10/01/18 09:42 09:42 10:34 WBC RBC Hgb Hct MCV MCH MCHC RDW Plt Count Seg Neutrophils % Lymphocytes % Monocytes % Eosinophils % Basophils % Absolute Neutrophils Absolute Lymphocytes Absolute Monocytes Absolute Eosinophils Absolute Basophils Sodium Potassium Chloride Carbon Dioxide Anion Gap BUN Creatinine Est GFR ( Amer) Est GFR (Non-Af Amer) Glucose Lactic Acid 2.7 H Calcium Total Bilirubin AST ALT Alkaline Phosphatase Total Protein Albumin TSH 0.15 L Free T4 1.85 Urine Color YELLOW Urine Appearance SLIGHTLY-CLOUDY Urine pH 7.0 Ur Specific [place] 1.005 Urine Protein NEGATIVE Urine Glucose (UA) NEGATIVE Urine Ketones TRACE H Urine Blood LARGE H Urine Nitrite NEGATIVE Ur Leukocyte Esterase LARGE H Urine WBC (Auto) >182 Urine RBC (Auto) 63 10/01/18 10/02/18 10/02/18 14:30 05:36 05:36 WBC 11.4 H RBC 3.60 L Hgb 10.8 L Hct 30.8 L MCV 86 MCH 30.1 MCHC 35.2 RDW 13.1 Plt Count 320 Seg Neutrophils % 73.5 Lymphocytes % 14.0 Monocytes % 10.7 Eosinophils % 0.5 Basophils % 1.3 Absolute Neutrophils 8.4 H Absolute Lymphocytes 1.6 Absolute Monocytes 1.2 Absolute Eosinophils 0.1 Absolute Basophils 0.1 Sodium Potassium Chloride Carbon Dioxide Anion Gap BUN Creatinine Est GFR ( Amer) Est GFR (Non-Af Amer) Glucose Lactic Acid 0.8 < 0.5 L Calcium Total Bilirubin AST ALT Alkaline Phosphatase Total Protein Albumin TSH Free T4 Urine Color Urine Appearance Urine pH Ur Specific [place] Urine Protein Urine Glucose (UA) Urine Ketones Urine Blood Urine Nitrite Ur Leukocyte Esterase Urine WBC (Auto) Urine RBC (Auto) 10/02/18 05:36 WBC RBC Hgb Hct MCV MCH MCHC RDW Plt Count Seg Neutrophils % Lymphocytes % Monocytes % Eosinophils % Basophils % Absolute Neutrophils Absolute Lymphocytes Absolute Monocytes Absolute Eosinophils Absolute Basophils Sodium 140.8 Potassium 3.7 Chloride 108 H Carbon Dioxide 22 Anion Gap 11 BUN 7 Creatinine 0.69 Est GFR ( Amer) > 60 Est GFR (Non-Af Amer) > 60 Glucose 74 L Lactic Acid Calcium 9.9 Total Bilirubin AST ALT Alkaline Phosphatase Total Protein Albumin TSH Free T4 Urine Color Urine Appearance Urine pH Ur Specific [place] Urine Protein Urine Glucose (UA) Urine Ketones Urine Blood Urine Nitrite Ur Leukocyte Esterase Urine WBC (Auto) Urine RBC (Auto) 10/01/18 10/01/18 09:42 09:42 Creatine Kinase < 20 L CK-MB (CK-2) < 0.22 Troponin I < 0.012 Impressions: Chest X-Ray 10/01/18 09:52 IMPRESSION: NO ACUTE RADIOGRAPHIC FINDING IN THE CHEST. Abdomen/Pelvis CT 10/01/18 10:45 IMPRESSION: UTERUS. NO SIGNIFICANT OR ACUTE FINDING IN THE ABDOMEN OR PELVIS ON CT SCAN WITH IV CONTRAST. Chest/Abdomen CTA 10/01/18 10:45 IMPRESSION: NORMAL CTA OF THE CHEST. NO PULMONARY EMBOLI. Assessment & Plan - Diagnosis (1) Endometritis following delivery Is this a current diagnosis for this admission?: Yes - Plan Summary Plan Summary: pt WBC down appears to be doing well. continue antibiotics and consider transfer to second floor
[2018-10-02 10:43] LABS: FREE T3 3.2 pg/mL (2.77-5.27); FREE T4 (FREE THYROXINE) 1.92 ng/dL (0.78-2.19)
[2018-10-02 10:56] LABS: THYROID STIMULATING HORMONE 0.25 uIU/mL (0.47-4.68)
--- NOTE | 2018-10-02 15:53 | PDOC PROGRESS REPORT ---
Subjective Progress Note for:: 10/02/18 Subjective:: STEW LÓPEZ is a 22 year old female with no significant past medical history who is presenting with abdominal pain, fever or chills. Patient recently delivered via vacuum-assisted vaginal delivery 2 weeks ago. She is being admitted for possible endometritis. No acute event overnight. She says she feels better today and the abdominal pain has improved. Reason For Visit: ENDOMETRITIS VS PYELONEPHRITIS; POSS SEPSIS Physical Exam Vital Signs: Temp Pulse Resp BP Pulse Ox 98.5 F 113 H 18 123/71 100 10/02/18 12:53 10/02/18 14:00 10/02/18 12:53 10/02/18 12:53 10/02/18 12:53 Intake & Output 10/01/18 10/02/18 10/03/18 06:59 06:59 06:59 Intake Total 5105.750 1388.875 Balance 5105.750 1388.875 Weight 161 lb 9.581 oz General appearance: PRESENT: no acute distress, well-developed, well-nourished Head exam: PRESENT: atraumatic, normocephalic Eye exam: PRESENT: conjunctiva pink, EOMI, PERRLA. ABSENT: scleral icterus Ear exam: PRESENT: normal external ear exam Mouth exam: PRESENT: moist, tongue midline Neck exam: ABSENT: carotid bruit, JVD, lymphadenopathy, thyromegaly Respiratory exam: PRESENT: clear to auscultation darcy. ABSENT: rales, rhonchi, w heezes Cardiovascular exam: PRESENT: RRR. ABSENT: diastolic murmur, rubs, systolic murmur Pulses: PRESENT: normal dorsalis pedis pul GI/Abdominal exam: PRESENT: normal bowel sounds, soft. ABSENT: distended, guarding, mass, organolmegaly, rebound, tenderness Rectal exam: PRESENT: deferred Neurological exam: PRESENT: alert, awake, oriented to person, oriented to place, oriented to time, oriented to situation, CN II-XII grossly intact. ABSENT: motor sensory deficit Results Laboratory Results: 10/02/18 05:36 10/02/18 05:36 10/01/18 10/02/18 10/02/18 09:42 05:36 05:36 WBC 11.4 H RBC 3.60 L Hgb 10.8 L Hct 30.8 L MCV 86 MCH 30.1 MCHC 35.2 RDW 13.1 Plt Count 320 Seg Neutrophils % 73.5 Lymphocytes % 14.0 Monocytes % 10.7 Eosinophils % 0.5 Basophils % 1.3 Absolute Neutrophils 8.4 H Absolute Lymphocytes 1.6 Absolute Monocytes 1.2 Absolute Eosinophils 0.1 Absolute Basophils 0.1 Sodium Potassium Chloride Carbon Dioxide Anion Gap BUN Creatinine Est GFR ( Amer) Est GFR (Non-Af Amer) Glucose Lactic Acid < 0.5 L Calcium TSH 0.15 L Free T4 1.85 Free T3 pg/mL 10/02/18 10/02/18 05:36 05:36 WBC RBC Hgb Hct MCV MCH MCHC RDW Plt Count Seg Neutrophils % Lymphocytes % Monocytes % Eosinophils % Basophils % Absolute Neutrophils Absolute Lymphocytes Absolute Monocytes Absolute Eosinophils Absolute Basophils Sodium 140.8 Potassium 3.7 Chloride 108 H Carbon Dioxide 22 Anion Gap 11 BUN 7 Creatinine 0.69 Est GFR ( Amer) > 60 Est GFR (Non-Af Amer) > 60 Glucose 74 L Lactic Acid Calcium 9.9 TSH 0.25 L Free T4 1.92 Free T3 pg/mL 3.20 10/01/18 10/01/18 09:42 09:42 Creatine Kinase < 20 L CK-MB (CK-2) < 0.22 Troponin I < 0.012 Impressions: Chest X-Ray 10/01/18 09:52 IMPRESSION: NO ACUTE RADIOGRAPHIC FINDING IN THE CHEST. Abdomen/Pelvis CT 10/01/18 10:45 IMPRESSION: UTERUS. NO SIGNIFICANT OR ACUTE FINDING IN THE ABDOMEN OR PELVIS ON CT SCAN WITH IV CONTRAST. Chest/Abdomen CTA 10/01/18 10:45 IMPRESSION: NORMAL CTA OF THE CHEST. NO PULMONARY EMBOLI. Assessment & Plan - Diagnosis (1) Sepsis Is this a current diagnosis for this admission?: Yes Plan: Possibly from endometritis. UA does show pyuria but her presentation is more consistent with endometritis. She has been started on antibiotics by Ob-Continuous Pickling Line Pickler. Noted CT results. She has RLQ pain. Noted appendix was not visualized on CT but PE is not consistent with appendicitis at this time. Continue IV fluids at 125 cc/hr. Lactic acidosis has resolved. Blood culture negative so far. Urine culture grew GBS. Continue IV antibiotics. (2) Endometritis following delivery Is this a current diagnosis for this admission?: Yes Plan: As per number 1. - Time Time Spent with patient: 25-34 minutes
[2018-10-02 18:08] LABS: GENTAMICIN-TROUGH 1.4 ug/mL (<2.0)
--- NOTE | 2018-10-02 20:54 | EKG REPORT ---
SEVERITY:- ABNORMAL ECG - SINUS TACHYCARDIA NONSPECIFIC T ABNORMALITIES, INFERIOR LEADS : Confirmed by: Myra Franco 02-Oct-2018 20:53:02
[2018-10-03] MEDS: WATER IV SCH ×2 (01:54→09:35)
[2018-10-03] MEDS: DEXTROSE 5% IV SCH ×2 (01:54→09:35)
[2018-10-03] MEDS: GENTAMICIN SULFATE IV SCH ×2 (01:54→09:35)
[2018-10-03 03:36] LABS: ABSOLUTE BASOPHILS # (AUTO) 0.1 10^3/uL (0.0-0.2); ABSOLUTE EOSINOPHILS # (AUTO) 0.2 10^3/uL (0.0-0.6); ABSOLUTE LYMPHOCYTES (AUTO) 2.3 10^3/uL (0.5-4.7); ABSOLUTE MONOCYTES (AUTO) 1.3 10^3/uL (0.1-1.4); ABSOLUTE NEUT (AUTO) 6.7 10^3/uL (1.7-8.2); BASOPHILS % (AUTO) 0.7 % (0-2); EOSINOPHILS % (AUTO) 2.1 % (0-6); HEMATOCRIT 30.9 % (36.0-47.0); HEMOGLOBIN 10.7 g/dL (12.0-15.5); LYMPHOCYTES % (AUTO) 21.7 % (13-45); MEAN CORPUSCULAR HEMOGLOBIN 29.4 pg (27.0-33.4); MEAN CORPUSCULAR HGB CONC 34.7 g/dL (32.0-36.0); MEAN CORPUSCULAR VOLUME 85 fl (80-97); PLATELET COUNT 349 10^3/uL (150-450); RED BLOOD COUNT 3.64 10^6/uL (3.72-5.28); RED CELL DISTRIBUTION WIDTH 13.2 % (11.5-14.0); SEGMENTED NEUTROPHILS % (AUTO) 63.5 % (42-78); TOTAL CELLS COUNTED % (AUTO) 100 %; WHITE BLOOD COUNT 10.6 10^3/uL (4.0-10.5)
[2018-10-03 03:57] LABS: ALANINE AMINOTRANSFERASE 29 U/L (9-52); ALBUMIN 3.4 g/dL (3.5-5.0); ALKALINE PHOSPHATASE 114 U/L (38-126); ANION GAP 7 (5-19); ASPARTATE AMINO TRANSFERASE 20 U/L (14-36); BILIRUBIN,DIRECT 0.3 mg/dL (0.0-0.4); BILIRUBIN,TOTAL 0.3 mg/dL (0.2-1.3); BLOOD UREA NITROGEN 6 mg/dL (7-20); CALCIUM 9.6 mg/dL (8.4-10.2); CARBON DIOXIDE 26 mmol/L (22-30); CHLORIDE 108 mmol/L (98-107); GLUCOSE 94 mg/dL (75-110); POTASSIUM 3.5 mmol/L (3.6-5.0); SODIUM 140.8 mmol/L (137-145); TOTAL PROTEIN 6.2 g/dL (6.3-8.2)
[2018-10-03 04:01] LABS: GENTAMICIN-PEAK 7.3 ug/mL (5.0-10.0)
[2018-10-03] MEDS: CLINDAMYCIN 900 MG/D5W RTU 900 MG/50 ML RTUPB IV SCH (06:25)
[2018-10-03] MEDS: RINGERS SOLUTION,LACTATED 1,000 ML IV PRN (06:26)
--- NOTE | 2018-10-03 09:58 | PDOC DISCHARGE SUMMARY ---
General - Admit/Disc Date/PCP Admission Date/Primary Care Provider: 10/01/18 15:34 Discharge Date: 10/03/18 - Discharge Diagnosis (1) Endometritis following delivery Is this a current diagnosis for this admission?: Yes (2) Leukocytosis Is this a current diagnosis for this admission?: Yes (3) Right lower quadrant abdominal pain Is this a current diagnosis for this admission?: Yes (4) SIRS (systemic inflammatory response syndrome) Is this a current diagnosis for this admission?: Yes - Additional Information Home Medications: No Home Medications 10/01/18 History of Present Illness History of Present Illness: STEW LÓPEZ is a 22 year old female admitted for endometritis approx 2 weeks post delivery due to fever, malaise and abdominal pain Physical Exam - Physical Exam Vital Signs: Temp Pulse Resp BP Pulse Ox 98.9 F 79 16 137/92 H 100 10/03/18 03:00 10/03/18 07:00 10/03/18 03:00 10/03/18 03:00 10/03/18 03:00 Intake & Output 10/02/18 10/03/18 10/04/18 06:59 06:59 06:59 Intake Total 5105.750 3080.625 50 Balance 5105.750 3080.625 50 Weight 73.3 kg 73.5 kg General appearance: PRESENT: no acute distress, cooperative Head exam: PRESENT: atraumatic GI/Abdominal exam: PRESENT: soft - nontender and nondistended - Gynecological Exam Vagina: normal Uterus: normal - Mild right lower quadrant tenderness, may be associated with uterus Result Laboratory Results: 10/03/18 03:26 10/03/18 03:26 10/02/18 10/02/18 10/03/18 05:36 17:25 03:26 WBC 10.6 H RBC 3.64 L Hgb 10.7 L Hct 30.9 L MCV 85 MCH 29.4 MCHC 34.7 RDW 13.2 Plt Count 349 Seg Neutrophils % 63.5 Lymphocytes % 21.7 Monocytes % 12.0 Eosinophils % 2.1 Basophils % 0.7 Absolute Neutrophils 6.7 Absolute Lymphocytes 2.3 Absolute Monocytes 1.3 Absolute Eosinophils 0.2 Absolute Basophils 0.1 Sodium Potassium Chloride Carbon Dioxide Anion Gap BUN Creatinine 0.58 Est GFR ( Amer) > 60 Est GFR (Non-Af Amer) > 60 Glucose Calcium Total Bilirubin AST ALT Alkaline Phosphatase Total Protein Albumin TSH 0.25 L Free T4 1.92 Free T3 pg/mL 3.20 10/03/18 03:26 WBC RBC Hgb Hct MCV MCH MCHC RDW Plt Count Seg Neutrophils % Lymphocytes % Monocytes % Eosinophils % Basophils % Absolute Neutrophils Absolute Lymphocytes Absolute Monocytes Absolute Eosinophils Absolute Basophils Sodium 140.8 Potassium 3.5 L Chloride 108 H Carbon Dioxide 26 Anion Gap 7 BUN 6 L Creatinine 0.55 Est GFR ( Amer) > 60 Est GFR (Non-Af Amer) > 60 Glucose 94 Calcium 9.6 Total Bilirubin 0.3 AST 20 ALT 29 Alkaline Phosphatase 114 Total Protein 6.2 L Albumin 3.4 L TSH Free T4 Free T3 pg/mL 10/01/18 10/01/18 09:42 09:42 Creatine Kinase < 20 L CK-MB (CK-2) < 0.22 Troponin I < 0.012 Impressions: Chest X-Ray 10/01/18 09:52 IMPRESSION: NO ACUTE RADIOGRAPHIC FINDING IN THE CHEST. Abdomen/Pelvis CT 10/01/18 10:45 IMPRESSION: UTERUS. NO SIGNIFICANT OR ACUTE FINDING IN THE ABDOMEN OR PELVIS ON CT SCAN WITH IV CONTRAST. Chest/Abdomen CTA 10/01/18 10:45 IMPRESSION: NORMAL CTA OF THE CHEST. NO PULMONARY EMBOLI. Plan Discharge Plan: discharge home with clindamycin and flagyl (pt is therefore Doxycycline not optimal). Will follow up in office next week. strict fever precautions given Time Spent: Less than 30 Minutes
[2018-10-03 10:24] VITALS: BP 133/91
--- NOTE | 2018-10-03 14:06 | PDOC PROGRESS REPORT ---
Subjective Progress Note for:: 10/03/18 Subjective:: STEW LÓPEZ is a 22 year old female with no significant past medical history who is presenting with abdominal pain, fever or chills. Patient recently delivered via vacuum-assisted vaginal delivery 2 weeks ago. She was admitted for possible endometritis. No acute event overnight. She feels better today and denies abdominal pain. She will be discharged by primary service today. Reason For Visit: ENDOMETRITIS VS PYELONEPHRITIS; POSS SEPSIS Physical Exam Vital Signs: Temp Pulse Resp BP Pulse Ox 98.9 F 79 16 133/91 H 100 10/03/18 10:23 10/03/18 10:23 10/03/18 10:23 10/03/18 10:23 10/03/18 10:23 Intake & Output 10/02/18 10/03/18 10/04/18 06:59 06:59 06:59 Intake Total 5105.750 3080.625 152.875 Balance 5105.750 3080.625 152.875 Weight 161 lb 9.581 oz 162 lb 0.636 oz General appearance: PRESENT: no acute distress, well-developed, well-nourished Head exam: PRESENT: atraumatic, normocephalic Eye exam: PRESENT: conjunctiva pink, EOMI, PERRLA. ABSENT: scleral icterus Ear exam: PRESENT: normal external ear exam Mouth exam: PRESENT: moist, tongue midline Neck exam: ABSENT: carotid bruit, JVD, lymphadenopathy, thyromegaly Respiratory exam: PRESENT: clear to auscultation darcy. ABSENT: rales, rhonchi, wheezes Cardiovascular exam: PRESENT: RRR. ABSENT: diastolic murmur, rubs, systolic murmur Pulses: PRESENT: normal dorsalis pedis pul GI/Abdominal exam: PRESENT: normal bowel sounds, soft. ABSENT: distended, guarding, mass, organolmegaly, rebound, tenderness Rectal exam: PRESENT: deferred Neurological exam: PRESENT: alert, awake, oriented to person, oriented to place, oriented to time, oriented to situation, CN II-XII grossly intact. ABSENT: motor sensory deficit Results Laboratory Results: 10/03/18 03:26 10/03/18 03:26 10/02/18 10/03/18 10/03/18 17:25 03:26 03:26 WBC 10.6 H RBC 3.64 L Hgb 10.7 L Hct 30.9 L MCV 85 MCH 29.4 MCHC 34.7 RDW 13.2 Plt Count 349 Seg Neutrophils % 63.5 Lymphocytes % 21.7 Monocytes % 12.0 Eosinophils % 2.1 Basophils % 0.7 Absolute Neutrophils 6.7 Absolute Lymphocytes 2.3 Absolute Monocytes 1.3 Absolute Eosinophils 0.2 Absolute Basophils 0.1 Sodium 140.8 Potassium 3.5 L Chloride 108 H Carbon Dioxide 26 Anion Gap 7 BUN 6 L Creatinine 0.58 0.55 Est GFR ( Amer) > 60 > 60 Est GFR (Non-Af Amer) > 60 > 60 Glucose 94 Calcium 9.6 Total Bilirubin 0.3 AST 20 ALT 29 Alkaline Phosphatase 114 Total Protein 6.2 L Albumin 3.4 L 10/01/18 10/01/18 09:42 09:42 Creatine Kinase < 20 L CK-MB (CK-2) < 0.22 Troponin I < 0.012 Impressions: Chest X-Ray 10/01/18 09:52 IMPRESSION: NO ACUTE RADIOGRAPHIC FINDING IN THE CHEST. Abdomen/Pelvis CT 10/01/18 10:45 IMPRESSION: UTERUS. NO SIGNIFICANT OR ACUTE FINDING IN THE ABDOMEN OR PELVIS ON CT SCAN WITH IV CONTRAST. Chest/Abdomen CTA 10/01/18 10:45 IMPRESSION: NORMAL CTA OF THE CHEST. NO PULMONARY EMBOLI. Assessment & Plan - Diagnosis (1) Sepsis Is this a current diagnosis for this admission?: Yes Plan: Resolved. Will be discharged on oral antibiotics today. (2) Endometritis following delivery Is this a current diagnosis for this admission?: Yes Plan: As per number 1. - Time Time Spent with patient: 15-24 minutes
== END 2018-10-03 12:34 | disposition home or self-care (01) | DRG 776 ==
LOC: ER 09:16 → EH 15:34 → 3S 21:42
PROVIDERS: ADMIT Obstetrics & Gynecology; ATTEND Obstetrics & Gynecology
DX: O86.12 Endometritis following delivery (principal)
CPT/HCPCS: 36415; 71045; 71275; 74177; 80048; 80053; 80170; 81001; 82550; 82553; 82565; 83605; 84439; 84443; 84481; 84484; 85025; 87040; 87086; 87088; 87804; 93005; 93010; 96361; 96365; 99291; J0696; J1580; J2550; J7030; J7040; J7120

== ENCOUNTER 2018-10-08 08:13 | Observation (INO) | payer OTHER ==
[2018-10-08] MEDS ORDERED: ONDANSETRON HCL INJ/PF 4 MG/2 ML SDV IV ONE (08:37)
--- NOTE | 2018-10-08 08:41 | ER Document Report ---
ED General - General Chief Complaint: Palpitations Stated Complaint: ABNORMAL HEART RATE Time Seen by Provider: 10/08/18 08:27 Primary Care Provider: SETH MAYO MD [ACTIVE STAFF] - Follow up in 3-5 days TRAVEL OUTSIDE OF THE [place] IN LAST 30 DAYS: No - HPI Notes: Patient is a 22-year-old female that presents to the emergency department for chief complaint of palpitations and nausea. Patient is 20 days out from vaginal delivery. She was admitted to the hospital last week for endometritis and Sirs. Patient states she was discharged on Cipro and Flagyl which she is still taking. She reports 2-3 days left of that medication. She denies missing any of her medication. She has felt nauseated since discharge but has not vomited. She reports intermittent episodes of palpitations. She currently is feeling palpitations and lightheadedness. Her lightheadedness is worse when she sits up. She does not feel like she would be able to sit up and ambulate at this time because of her palpitations and lightheadedness. She denies any cough, fever, shortness of breath, chest pain, abdominal pain, and vaginal discharge. She reports she is having some vaginal b leeding which is unchanged since her delivery and not getting worse. She denies any dysuria or urinary frequency. Patient is still breast-feeding. Patient states that she was walking into her CLIENT SERVICES DIRECTOR follow-up appointment today and was seen in the hallway by 1 of the midwives, after a short discussion with the automatic corn grinder operator she was referred to the emergency room. Past Medical History: Negative Past Surgical History: negative Social History: Denies drugs alcohol and tobacco Family History: Reviewed and noncontributory for presenting illness Allergies: Reviewed, see documented allergy list. REVIEW OF SYSTEMS: CONSTITUTIONAL : No fever No chills No diaphoresis No recent illness EENT: No vision changes No congestion No sore throat CARDIOVASCULAR: No chest pain palpitations RESPIRATORY: No shortness of breath No cough No difficulty breathing GASTROINTESTINAL: No abdominal pain nausea No vomiting No diarrhea GENITOURINARY: Vaginal bleeding No dysuria No hematuria No difficulty urinating MUSCULOSKELETAL: No back pain No leg pain No arm pain SKIN: No rashes No lesions LYMPHATIC: No swollen, enlarged glands. NEUROLOGICAL: No lightheadedness No headache No weakness No paresthesias PSYCHIATRIC: No anxiety No depression PHYSICAL EXAMINATION: Vital signs reviewed, nursing noted reviewed. GENERAL: Well-appearing, well-nourished and in no acute distress. HEAD: Atraumatic, normocephalic. EYES: Eyes appear normal, extraocular movements intact, sclera anicteric, conjunctiva are normal without pallor. ENT: nares patent, oropharynx clear without exudates. Dry mucous membranes. NECK: Normal range of motion, supple without lymphadenopathy LUNGS: Breath sounds clear to auscultation bilaterally and equal. No wheezes rales or rhonchi. HEART: Tachycardic rate and regular rhythm without murmurs ABDOMEN: Soft, mild suprapubic tenderness, normoactive bowel sounds. No rebound, guarding, or rigidity. No masses appreciated. EXTREMITIES: Nontender, good range of motion, no pitting or edema. NEUROLOGICAL: No focal neurological deficits. Moves all extremities spontaneously Motor and sensory grossly intact on exam. PSYCH: Normal mood, normal affect. SKIN: Warm, Dry, normal turgor - Related Data Allergies/Adverse Reactions: ibuprofen Allergy (Verified 10/01/18 23:26) Past Medical History - Social History Smoking Status: Never Smoker Family History: Reviewed & Not Pertinent Renal/ Medical History: Denies: Hx Peritoneal Dialysis Physical Exam - Vital signs Vitals: Temp Pulse Resp BP Pulse Ox 98.1 F 165 H 18 130/90 H 100 10/08/18 08:20 10/08/18 08:20 10/08/18 08:20 10/08/18 08:20 10/08/18 08:20 Course - Re-evaluation Re-evalutation: 10/08/18 08:40 Vitals reviewed. Nursing notes reviewed. Patient started on 2 L IV hydration for her tachycardia. EKG shows a sinus tachycardia without dysrhythmia. 10/08/18 10:10 Patient reevaluated and was resting comfortably with a heart rate of 93 when I entered the room. We began speaking her heart rate increased to 120. She is not currently having any palpitations. She states she is she feels lightheaded still when she is getting up. Her workup today is unremarkable. Her lab work is improving from previous. She is not septic. Patients case discussed with Dr. Mayo who evaluated the patient in the emergency room. Patient is expr essing concern that she is unable to stand without feeling very lightheaded. Her heart rate does increase with position changes. Dr. Mayo recommends starting metoprolol which will be given in the emergency room. He will follow the patient in consultation and likely obtain cardiac echo. Patient is in agreement with this plan of care. She will be admitted to the hospital for further management. Case discussed with Dr. Jarrett who accepted admission Laboratory 10/08/18 10/08/18 10/08/18 08:32 08:32 08:32 WBC 8.7 RBC 4.16 Hgb 12.3 Hct 35.3 L MCV 85 MCH 29.5 MCHC 34.7 RDW 13.0 Plt Count 462 H Seg Neutrophils % 72.4 Lymphocytes % 17.5 Monocytes % 8.1 Eosinophils % 1.0 Basophils % 1.0 Absolute Neutrophils 6.3 Absolute Lymphocytes 1.5 Absolute Monocytes 0.7 Absolute Eosinophils 0.1 Absolute Basophils 0.1 VBG pH VBG pCO2 VBG HCO3 VBG Base Excess Sodium 137.1 Potassium 3.7 Chloride 99 Carbon Dioxide 23 Anion Gap 15 BUN 6 L Creatinine 0.66 Est GFR ( Amer) > 60 Est GFR (Non-Af Amer) > 60 Glucose 101 Lactic Acid 1.3 Calcium 10.9 H Total Bilirubin 0.4 Direct Bilirubin 0.2 Neonat Total Bilirubin Not Reportable Neonat Direct Bilirubin Not Reportable Neonat Indirect Bili Not Reportable AST 46 H ALT 35 Alkaline Phosphatase 130 H Troponin I Total Protein 7.8 Albumin 4.5 Urine Color Urine Appearance Urine pH Ur Specific [place] Urine Protein Urine Glucose (UA) Urine Ketones Urine Blood Urine Nitrite Urine Bilirubin Urine Urobilinogen Ur Leukocyte Esterase Urine WBC (Auto) Urine RBC (Auto) Squamous Epi Cells Auto Urine Mucus (Auto) Urine Ascorbic Acid 10/08/18 10/08/18 10/08/18 08:32 08:32 09:16 WBC RBC Hgb Hct MCV MCH MCHC RDW Plt Count Seg Neutrophils % Lymphocytes % Monocytes % Eosinophils % Basophils % Absolute Neutrophils Absolute Lymphocytes Absolute Monocytes Absolute Eosinophils Absolute Basophils VBG pH 7.50 H VBG pCO2 29.9 L VBG HCO3 22.8 VBG Base Excess 0.8 Sodium Potassium Chloride Carbon Dioxide Anion Gap BUN Creatinine Est GFR ( Amer) Est GFR (Non-Af Amer) Glucose Lactic Acid Calcium Total Bilirubin Direct Bilirubin Neonat Total Bilirubin Neonat Direct Bilirubin Neonat Indirect Bili AST ALT Alkaline Phosphatase Troponin I < 0.012 Total Protein Albumin Urine Color STRAW Urine Appearance CLEAR Urine pH 6.0 Ur Specific [place] 1.001 Urine Protein NEGATIVE Urine Glucose (UA) NEGATIVE Urine Ketones TRACE H Urine Blood MODERATE H Urine Nitrite NEGATIVE Urine Bilirubin NEGATIVE Urine Urobilinogen NEGATIVE Ur Leukocyte Esterase MODERATE H Urine WBC (Auto) 3 Urine RBC (Auto) 1 Squamous Epi Cells Auto <1 Urine Mucus (Auto) RARE Urine Ascorbic Acid NEGATIVE Chest X-Ray 10/08/18 08:31 IMPRESSION: NO ACUTE RADIOGRAPHIC FINDING IN THE CHEST. - Vital Signs Vital signs: Temp Pulse Resp BP Pulse Ox 98.1 F 165 H 18 130/90 H 100 10/08/18 08:20 10/08/18 08:20 10/08/18 08:20 10/08/18 08:20 10/08/18 08:20 - Laboratory Result Diagrams: 10/08/18 08:32 10/08/18 08:32 Laboratory results interpreted by me: 10/08/18 10/08/18 10/08/18 08:32 08:32 08:32 Hct 35.3 L Plt Count 462 H VBG pH VBG pCO2 BUN 6 L Calcium 10.9 H AST 46 H Alkaline Phosphatase 130 H Urine Ketones TRACE H Urine Blood MODERATE H Ur Leukocyte Esterase MODERATE H 10/08/18 09:16 Hct Plt Count VBG pH 7.50 H VBG pCO2 29.9 L BUN Calcium AST Alkaline Phosphatase Urine Ketones Urine Blood Ur Leukocyte Esterase - EKG Interpretation by Me Additional EKG results interpreted by me: 10/08/18 08:40 Interpreted by myself [id number]: Sinus tachycardia, rate 129, normal axis, no ectopy, no WPW Discharge - Discharge Clinical Impression: Tachycardia, Lightheaded, Palpitations Condition: Stable Disposition: ADMITTED OBSERVATION Admitting Provider: Hospitalist Unit Admitted: Telemetry Instructions: Sinus Tachycardia ([facility]) Additional Instructions: Please return to the emergency department if you have any worsening, or concern of your symptoms. Please return to the emergency department if you develop chest pain, difficulty breathing, severe abdominal pain, or ongoing vomiting. Please follow-up with your primary care physician in 2-3 days and any other recommended physicians. If prescribed, take all medications as directed. If you have any questions or concerns do not hesitate to return the emergency department for evaluation. Stay well-hydrated to lessen your tachycardia Stand up slowly and if you feel lightheaded stand with assistance. Prescriptions: Metoprolol Tartrate [Lopressor 25 mg Tablet] 25 mg PO BID #30 tab Referrals: SETH MAYO MD [ACTIVE STAFF] - Follow up in 3-5 days
[2018-10-08] MEDS: NORMAL SALINE 1000 ML 1,000 ML IV PRN ×3 (08:49→17:38)
[2018-10-08 09:08] LABS: ABSOLUTE BASOPHILS # (AUTO) 0.1 10^3/uL (0.0-0.2); ABSOLUTE EOSINOPHILS # (AUTO) 0.1 10^3/uL (0.0-0.6); ABSOLUTE LYMPHOCYTES (AUTO) 1.5 10^3/uL (0.5-4.7); ABSOLUTE MONOCYTES (AUTO) 0.7 10^3/uL (0.1-1.4); ABSOLUTE NEUT (AUTO) 6.3 10^3/uL (1.7-8.2); HEMATOCRIT 35.3 % (36.0-47.0); HEMOGLOBIN 12.3 g/dL (12.0-15.5); LYMPHOCYTES % (AUTO) 17.5 % (13-45); MEAN CORPUSCULAR HEMOGLOBIN 29.5 pg (27.0-33.4); MEAN CORPUSCULAR HGB CONC 34.7 g/dL (32.0-36.0); MEAN CORPUSCULAR VOLUME 85 fl (80-97); MONOCYTES % (AUTO) 8.1 % (3-13); PLATELET COUNT 462 10^3/uL (150-450); RED BLOOD COUNT 4.16 10^6/uL (3.72-5.28); SEGMENTED NEUTROPHILS % (AUTO) 72.4 % (42-78); TOTAL CELLS COUNTED % (AUTO) 100 %; WHITE BLOOD COUNT 8.7 10^3/uL (4.0-10.5)
--- NOTE | 2018-10-08 09:08 | RADIOLOGY REPORT (SQ) ---
EXAM DESCRIPTION: CHEST SINGLE VIEW COMPLETED DATE/TIME: 10/08/2018 8:59 am REASON FOR STUDY: tachycardia COMPARISON: 10/01/2018 EXAM PARAMETERS: NUMBER OF VIEWS: One view. TECHNIQUE: Single frontal radiographic view of the chest acquired. RADIATION DOSE: NA LIMITATIONS: None. FINDINGS: LUNGS AND PLEURA: No opacities, masses or pneumothorax. No pleural effusion. MEDIASTINUM AND HILAR STRUCTURES: No masses. Contour normal. HEART AND VASCULAR STRUCTURES: Heart normal in size. Normal vasculature. BONES: No acute findings. HARDWARE: None in the chest. OTHER: No other significant finding. IMPRESSION: NO ACUTE RADIOGRAPHIC FINDING IN THE CHEST. TECHNICAL DOCUMENTATION: JOB ID: [id number] [employer]- All Rights Reserved Reading location - IP/workstation name: [email or web address]
[2018-10-08 09:14] LABS: APPEARANCE,URINE CLEAR; BILIRUBIN,URINE NEGATIVE (NEGATIVE); COLOR,URINE STRAW; GLUCOSE, URINE NEGATIVE (NEGATIVE); KETONES,URINE TRACE mg/dL (NEGATIVE); LEUKOCYTE ESTERASE,URINE MODERATE (NEGATIVE); NITRITE,URINE NEGATIVE (NEGATIVE); PROTEIN,URINE NEGATIVE (NEGATIVE); URINE SPECIFIC GRAVITY 1.001; UROBILINOGEN,URINE NEGATIVE mg/dL (<2.0)
[2018-10-08 09:32] LABS: ALANINE AMINOTRANSFERASE 35 U/L (9-52); ALBUMIN 4.5 g/dL (3.5-5.0); ALKALINE PHOSPHATASE 130 U/L (38-126); ANION GAP 15 (5-19); ASPARTATE AMINO TRANSFERASE 46 U/L (14-36); BILIRUBIN,DIRECT 0.2 mg/dL (0.0-0.4); BILIRUBIN,TOTAL 0.4 mg/dL (0.2-1.3); BLOOD UREA NITROGEN 6 mg/dL (7-20); CALCIUM 10.9 mg/dL (8.4-10.2); CARBON DIOXIDE 23 mmol/L (22-30); CHLORIDE 99 mmol/L (98-107); GLUCOSE 101 mg/dL (75-110); POTASSIUM 3.7 mmol/L (3.6-5.0); SODIUM 137.1 mmol/L (137-145); TOTAL PROTEIN 7.8 g/dL (6.3-8.2)
[2018-10-08 09:43] LABS: VENOUS BLOOD BASE EXCESS 0.8 mmol/L; VENOUS BLOOD HCO3 22.8 mmol/L (20-32); VENOUS BLOOD PCO2 29.9 mmHg (35-63); VENOUS BLOOD PH 7.5 (7.30-7.42)
[2018-10-08] MEDS ORDERED: METOPROLOL TARTRATE 25 MG TABLET PO ONE (10:16)
[2018-10-08] MEDS ORDERED: DEXTROSE 50%-WATER 25 GM/50 ML DISP.SYRIN IV PRN ×2 (12:12)
[2018-10-08] MEDS ORDERED: GLUCAGON,HUMAN RECOMB 1 MG INJ SUBCUT PRN (12:12)
[2018-10-08] MEDS ORDERED: ACETAMINOPHEN 325 MG TABLET PO PRN (12:12)
[2018-10-08] MEDS ORDERED: DEXTROSE 40% GEL 15 GM TUBE PO PRN ×2 (12:12)
--- NOTE | 2018-10-08 19:25 | PDOC H&P ---
History of Present Illness Admission Date/PCP: 10/08/18 10:32 Patient complains of: Tachycardia and dizziness with standing up History of Present Illness: STEW LÓPEZ is a 22 year old female who is 20 days from vaginal delivery, who presented with complaint of posterior tachycardia. She feels tachycardic when she gets up from laying to sitting or standing position. She also has some lightheadedness. This has been going on for several weeks. She denies chest pain or shortness of breath. She was seen by the [facility]CARE MANAGER clinic today and referred to the ED. In the emergency room, patient was found to be tachycardic in the 120s and orthostatic. ED doctor spoke to gang ripsaw operator who recommended admitting patient and treating with a trial of beta-kem. Patient is still breast-feeding. ED physician spoke to DAYCARE MANAGER adjuster piano action who stated beta-kem okay to use for her. She was referred to hospitalist service for admission. Of note is that patient was admitted to the hospital last week for endometritis and Sirs. She was discharged on clindamycin and Flagyl and reports 2-3 days left of that medication. She denies missing any of her medication. She has felt nauseated since discharge due to the medications but has not vomited. Social History Smoking Status: Never Smoker Frequency of Alcohol Use: None Hx Recreational Drug Use: No Hx Prescription Drug Abuse: No - Advance Directive Resuscitation Status: Full Code Family History Family History: Significant for Sjogren's syndrome in the mother, diverticulitis in the father Parental Family History Reviewed: Yes Children Family History Reviewed: Yes Sibling(s) Family History Reviewed.: Yes Medication/Allergy Home Medications: Metoprolol Tartrate [Lopressor 25 mg Tablet] 25 mg PO BID #30 tab 10/08/18 Allergies/Adverse Reactions: ibuprofen Allergy (Severe, Verified 10/08/18 12:43) TONGUE/FACIAL SWELLING Review of Systems Review of Systems: CONSTITUTIONAL : Fever, chills -- No; unexpalined fatigue -- No EENT: Denies eye, ear, throat, or mouth pain or symptoms. Denies nasal or sinus congestion or discharge. Denies throat, tongue, or mouth swelling or difficulty swallowing. CARDIOVASCULAR: Denies chest pain. Posterior tachycardia as in HPI. RESPIRATORY: Denies cough, no shortness of breath, difficulty breathing. GASTROINTESTINAL: Denies abdominal pain or distention. Denies nausea, vomiting, or diarrhea. No rectal bleeding. GENITOURINARY: Urinary symptoms -- no. MUSCULOSKELETAL: No acute weakness SKIN: Denies rash, lesions or sores. HEMATOLOGIC : Denies easy bruising or bleeding. LYMPHATIC: Denies swollen, enlarged glands. NEUROLOGICAL: New weakness, headaches, slured speach - No PSYCHIATRIC: Changes anxiety or stress, depression, suicidal ideation, or debby icidal ideation -- No ALL OTHER SYSTEMS REVIEWED AND NEGATIVE. Physical Exam Vital Signs: Temp Pulse Resp BP Pulse Ox 98.1 F 165 H 18 130/90 H 100 10/08/18 08:20 10/08/18 08:20 10/08/18 08:20 10/08/18 08:20 10/08/18 08:20 Intake & Output 10/07/18 10/08/18 10/09/18 06:59 06:59 06:59 Intake Total 1000 Balance 1000 Weight 63.503 kg GENERAL: Well-developed, well-nourished female, no acute distress HEENT: Normocephalic/atraumatic NECK supple, no JVD CARDIOVASCULAR: RRR, normal S1-S2, no appreciable murmur LUNGS: CTA bilaterally ABDOMEN: Soft, NT, NL bowel sounds EXTREMITIES: No edema, clubbing, cyanosis NEUROLOGICAL: Alert, oriented x 3, nonfocal Results Laboratory Results: 10/08/18 08:32 10/08/18 08:32 10/08/18 10/08/18 10/08/18 08:32 08:32 08:32 WBC 8.7 RBC 4.16 Hgb 12.3 Hct 35.3 L MCV 85 MCH 29.5 MCHC 34.7 RDW 13.0 Plt Count 462 H Seg Neutrophils % 72.4 Lymphocytes % 17.5 Monocytes % 8.1 Eosinophils % 1.0 Basophils % 1.0 Absolute Neutrophils 6.3 Absolute Lymphocytes 1.5 Absolute Monocytes 0.7 Absolute Eosinophils 0.1 Absolute Basophils 0.1 VBG pH VBG pCO2 VBG HCO3 VBG Base Excess Sodium 137.1 Potassium 3.7 Chloride 99 Carbon Dioxide 23 Anion Gap 15 BUN 6 L Creatinine 0.66 Est GFR ( Amer) > 60 Est GFR (Non-Af Amer) > 60 Glucose 101 Lactic Acid 1.3 Calcium 10.9 H Total Bilirubin 0.4 AST 46 H ALT 35 Alkaline Phosphatase 130 H Total Protein 7.8 Albumin 4.5 Urine Color Urine Appearance Urine pH Ur Specific [place] Urine Protein Urine Glucose (UA) Urine Ketones Urine Blood Urine Nitrite Ur Leukocyte Esterase Urine WBC (Auto) Urine RBC (Auto) 10/08/18 10/08/18 08:32 09:16 WBC RBC Hgb Hct MCV MCH MCHC RDW Plt Count Seg Neutrophils % Lymphocytes % Monocytes % Eosinophils % Basophils % Absolute Neutrophils Absolute Lymphocytes Absolute Monocytes Absolute Eosinophils Absolute Basophils VBG pH 7.50 H VBG pCO2 29.9 L VBG HCO3 22.8 VBG Base Excess 0.8 Sodium Potassium Chloride Carbon Dioxide Anion Gap BUN Creatinine Est GFR ( Amer) Est GFR (Non-Af Amer) Glucose Lactic Acid Calcium Total Bilirubin AST ALT Alkaline Phosphatase Total Protein Albumin Urine Color STRAW Urine Appearance CLEAR Urine pH 6.0 Ur Specific [place] 1.001 Urine Protein NEGATIVE Urine Glucose (UA) NEGATIVE Urine Ketones TRACE H Urine Blood MODERATE H Urine Nitrite NEGATIVE Ur Leukocyte Esterase MODERATE H Urine WBC (Auto) 3 Urine RBC (Auto) 1 10/08/18 08:32 Troponin I < 0.012 Impressions: Chest X-Ray 10/08/18 08:31 IMPRESSION: NO ACUTE RADIOGRAPHIC FINDING IN THE CHEST. Assessment & Plan - Diagnosis (1) Tachycardia Is this a current diagnosis for this admission?: Yes (2) Palpitations Is this a current diagnosis for this admission?: Yes (3) Lightheaded Is this a current diagnosis for this admission?: Yes (4) Endometritis following delivery Is this a current diagnosis for this admission?: Yes - Plan Summary Plan Summary: Patient's tachycardia is positional. Will admit patient to telemetry, 24 hours observation. Will hydrate with normal saline 100/h. Will check orthostatic blood pressures. We will continue metoprolol at 25 mg twice daily. Also, check echocardiogram. Follow-up CBC and Chem-7 in a.m. We will also check TSH, magnesium. We will continue patient clindamycin and Flagyl to complete course for endometritis. Further management per clinical course.
--- NOTE | 2018-10-08 21:08 | EKG REPORT ---
SEVERITY:- OTHERWISE NORMAL ECG - SINUS TACHYCARDIA : Confirmed by: Kiersten Dunn MD 08-Oct-2018 21:07:57
--- NOTE | 2018-10-08 21:18 | PDOC CONSULTATION ---
Consultation-Blank Consultation: CARDIOLOGY CONSULTATION by Dr. Kiersten Dunn on 10/08/2018. Patient earlier seen at around 330pm in the emergency room, and again at 6 PM on the floor. Formal consult done at 7 PM. REASON FOR CONSULTATION: Orthostatic tachycardia. HISTORY OF PRESENT ILLNESS: Patient is a pleasant 22-year-old female who under epidural anesthesia had natural delivery about 3 weeks ago, states that after that she was diagnosed with endometritis and SIRS, with antibiotics, states that since the past 3 weeks has been having rapid palpitations when she stands up. Since after childbirth she has been having nausea, but no vomiting. She denies any shortness of breath or chest pain with that but feels lightheaded although no definite syncope. She denies any dizziness and exertion or shortness of breath or PND orthopnea. The patient denies any fever chills or rigors. There is no symptoms suggestive of UTI. Her heart rate at rest and lying down is about 120 bpm, and if she stands up her heart rate goes up to 165 bpm and the patient feels dizzy, and is aware of rapid palpitations. No prior history of prior to the onset of about 3 weeks ago. She has no anxiety, and does not appear to be depressed or anxious. She is breast-feeding her child. PAST MEDICAL HISTORY: The patient has no history of depression. Now this is resolved. She has no history of hypertension or diabetes mellitus. There is no history of asthma or COPD. The patient does smoke. There is no history of thyroid disease. There are no history of chronic kidney disease. She recently is being treated for endometritis. She has a history of anxiety, but no depression. PAST SURGICAL HISTORY: None. SOCIAL HISTORY: The patient has never smoked. There is no history of EtOH abuse. ALLERGIES: The patient is allergic to ibuprofen. FAMILY HISTORY: The patient's mother had Sjogren's disease, and father had diverticulitis. DISPOSITION: She is a full code. Her is her surrogate healthcare decision maker REVIEW SYSTEMS: CONSTITUTIONAL: Denies any fever chills or rigors. No history of malaise or fatigue. EYES: No history of amblyopia diplopia. No history of amaurosis fugax. HEAD: No history of headaches or head injury. EARS: No history of hearing loss. No history of recurrent ear infections. No tinnitus. NOSE: No history of hayfever. No history of nasal polyps. No history of nosebleeds. MOUTH: No history of altered taste sensation. No ulcers in the mouth. No bleeding from the gums. THROAT: No history of odynophagia dysphagia no history of recurrent sore throats. SKIN: No history of pruritus. No history of jaundice. No history of psoriasis or skin cancer. NECK: No history of neck pain. No history of goiter. LUNGS: No history of asthma or COPD. No history of sleep apnea. No history of pulmonary embolism. No symptoms of upper or lower respiratory tract infection. No pleuritic chest pain. No hemoptysis. HEART: History of most likely a PFO with spontaneous closure when she was a child. No history of hypertension. No prior history of atrial fibrillation. There is no history of heart failure. There is no syncope. There is no history of palpitations. No prior history of leg edema. GI: She has been having nausea, but no vomiting. Her p.o. intake has been slightly decreased. No history of GI bleed no history of GERD. No history of peptic ulcer disease. No history of altered bowel movements. No history of fatty food intolerance. No abdominal pain ENDOCRINE: No history of thyroid disease. No history of diabetes mellitus. No history of polydipsia polyuria no history of heat or cold intolerance no history of hirsutism. No history of excessive sweating. RENAL: No history of chronic kidney disease. No history of hematuria pyuria or dysuria. No history of recurrent urinary tract infections. MUSCULOSKELETAL: Denies arthritis or collagen vascular disease. VALIDATION SOFTWARE FACILITATOR no history of TIA CVA. No history of headaches migraines or seizures. PSYCHIATRIC: There is no history of depression, but she has a history of anxiety. No history of suicidal ideation or homicidal ideation. VASCULAR: No history of peripheral vascular disease. No history of DVT. HEMATOLOGICAL. No history of bleeding diathesis. No history of clotting disorders. PHYSICAL EXAMINATION: The patient is well-built and well-nourished. She is well-groomed, and in no acute distress. Selected Entries 10/08/18 18:50 Temperature 98.7 F Temperature Oral Source Respiratory 16 Rate Blood Pressure 127/80 H [Right Upper Arm] Blood Pressure 95 Mean [Right Upper Arm] Blood Pressure Supine Position [Right Upper Arm] O2 Sat by Pulse 100 Oximetry Oxygen Delivery Room Air Method ( includes room air) HEAD: Is atraumatic normocephalic. EYES: Pupils equal round regular react to light accommodation. Extraocular movements are normal. There is no clinical pallor. THERE IS NO SCLERAL ICTERUS. EARS: TYMPANIC MEMBRANES ARE INTACT EXTERNAL AUDITORY CANALS ARE CLEAR. Nose: There is no inflammation of the nasal mucous membrane. There is no nasal polyps. MOUTH: His membranes of mouth are moist tongue is moist. There is no ulcers there is no bleeding from the gums. THROAT: There is no exudates in the throat. There is no redness of the oropharynx. SKIN: There is no petechia or ecchymosis. There is no skin rashes or skin lesions. NECK: Is supple. There is no JVD. Carotids are equal there is no bruit. There is no lymphadenopathy. There is no goiter. There is no accessory muscle respiration in use. There is no lymphadenopathy. LUNGS: Is clear to auscultation percussion without any rhonchi rales or wheezing. There is no chest wall tenderness. HEART: S1-S2 is heard there is no S3 gallop there is no S4 gallop S1 is of normal intensity. There is a systolic murmur left sternal border and apex without radiation. There is no rub. ABDOMEN: Soft there is no hepatosplenic megaly. Bowel sounds are well heard. Her surgical site dressing is clean and dry. EXTREMITIES: Femorals are well felt. There is no femoral bruits. Leg pulses are well felt. There is no pedal edema. There is no DVT or cellulitis. There is no calf tenderness. There is no cyanosis or clubbing. Capillary refill is normal. VALIDATION SOFTWARE FACILITATOR: The patient is conscious slightly drowsy due to anesthetic effect. There is no focal deficit. She is oriented x3. PSYCHIATRIC: The patient judgment and insight are intact her affect is normal 10/08/18 10/08/18 10/08/18 08:32 08:32 08:32 WBC 8.7 RBC 4.16 Hgb 12.3 Hct 35.3 L MCV 85 MCH 29.5 MCHC 34.7 RDW 13.0 Plt Count 462 H Seg Neutrophils % 72.4 Lymphocytes % 17.5 Monocytes % 8.1 Eosinophils % 1.0 Basophils % 1.0 Absolute Neutrophils 6.3 Absolute Lymphocytes 1.5 Absolute Monocytes 0.7 Absolute Eosinophils 0.1 Absolute Basophils 0.1 VBG pH VBG pCO2 VBG HCO3 VBG Base Excess Sodium 137.1 Potassium 3.7 Chloride 99 Carbon Dioxide 23 Anion Gap 15 BUN 6 L Creatinine 0.66 Est GFR (Non-Af Amer) > 60 Glucose 101 Lactic Acid 1.3 Total Bilirubin 0.4 Direct Bilirubin 0.2 Neonat Total Bilirubin Not Reportable Neonat Direct Bilirubin Not Reportable Neonat Indirect Bili Not Reportable AST 46 H ALT 35 Alkaline Phosphatase 130 H Troponin I Total Protein 7.8 Albumin 4.5 10/08/18 10/08/18 08:32 09:16 WBC RBC Hgb Hct MCV MCH MCHC RDW Plt Count Seg Neutrophils % Lymphocytes % Monocytes % Eosinophils % Basophils % Absolute Neutrophils Absolute Lymphocytes Absolute Monocytes Absolute Eosinophils Absolute Basophils VBG pH 7.50 H VBG pCO2 29.9 L VBG HCO3 22.8 VBG Base Excess 0.8 Sodium Potassium Chloride Carbon Dioxide Anion Gap BUN Creatinine Est GFR (Non-Af Amer) Glucose Lactic Acid Total Bilirubin Direct Bilirubin Neonat Total Bilirubin Neonat Direct Bilirubin Neonat Indirect Bili AST ALT Alkaline Phosphatase Troponin I < 0.012 Total Protein Albumin 10/08/18 08:37 Ondansetron HCl/Pf [Zofran Inj/Pf 4 mg/2 ml Sdv] 4 mg IV NOW ONE 10/08/18 10:16 Metoprolol Tartrate [Lopressor 25 mg Tablet] 25 mg PO NOW ONE 10/08/18 12:12 Acetaminophen [Tylenol 325 mg Tablet] 650 mg PO Q4HP PRN Dextrose 50%-Water [Dextrose Inj 50% Syringe (25 gm/50 ml)] 12.5 gm IV PRN PRN Dextrose 50%-Water [Dextrose Inj 50% Syringe (25 gm/50 ml)] 25 gm IV PRN PRN Dextrose [Glutose 40% Gel 15 gm Tube] 15 gm PO PRN PRN Dextrose [Glutose 40% Gel 15 gm Tube] 30 gm PO PRN PRN Glucagon,Human Recombinant [Glucagen Inj 1 mg Vial] 1 mg SUBCUT PRN PRN Normal Saline 1000 ml [NaCl 0.9% 1000 ml IV Soln] 1,000 ml IV CONTINUOUS 10/08/18 14:00 Normal Saline [Saline Flush 2.5 ml Monoject Prefil Syrin] 2.5 ml IV Q8 10/08/18 22:00 Ciprofloxacin HCl [Cipro 500 mg Tablet] 500 mg PO Q12 Metoprolol Tartrate [Lopressor 25 mg Tablet] 25 mg PO Q12 Metronidazole [Flagyl 500 mg Tablet] 500 mg PO Q8 10/09/18 10:00 Enoxaparin Sodium [Lovenox Inj 40 mg/0.4 ml Disp.syrin] 40 mg SUBCUT DAILY CHEST X-ray is negative. Her EKG shows sinus tachycardia, otherwise within normal limits. IMPRESSION/RECOMMENDATION: 1. Orthostatic tachycardia: Need to rule out occult infection, dehydration. Recommend checking thyroid function tests. Possibly the patient has POTS(postural orthostatic tachycardia syndrome] agree with hydrating the patient. Will give a trial of beta-blockers. The emergency department physician spoke to the QUALITATIVE FIELD PROJECT MANAGER on-call, and it is clear that in spite of the patient breast-feeding, they should be no problems and oral metoprolol taken by the patient. We will check an echo to make sure that the patient does not have any structural abnormalities of her heart 2. History of anxiety. Continue antianxiety agents. 3. History of endometritis: Patient be treated with antibiotics. Occasions reviewed. Management plan discussed with the patient, patient's and the identification on the case. Medical decision making is of high complexity. 60 minutes spent on this patient with more than 50% of time spent in direct patient care. We will follow with you.
[2018-10-08] MEDS: CIPROFLOXACIN HCL 500 MG TABLET PO SCH (21:19)
[2018-10-08] MEDS: METRONIDAZOLE 500 MG TABLET PO SCH (21:19)
[2018-10-08] MEDS: METOPROLOL TARTRATE 25 MG TABLET PO SCH (21:20)
[2018-10-09] MEDS: METRONIDAZOLE 500 MG TABLET PO SCH ×3 (05:03→21:12)
[2018-10-09] MEDS: NORMAL SALINE 1000 ML 1,000 ML IV PRN (05:06)
[2018-10-09] MEDS ORDERED: ONDANSETRON 4 MG TAB.RAPDIS ONE (08:17)
[2018-10-09] MEDS: METOPROLOL TARTRATE 25 MG TABLET PO SCH ×2 (09:15→21:13)
[2018-10-09] MEDS: ENOXAPARIN SODIUM INJ 40 MG/0.4 ML DISP.SYRIN SUBCUT SCH (10:58)
[2018-10-09] MEDS: CIPROFLOXACIN HCL 500 MG TABLET PO SCH (11:04)
[2018-10-09] MEDS: CLINDAMYCIN HCL 150 MG CAPSULE PO SCH ×2 (15:08→21:12)
[2018-10-09] MEDS ORDERED: METOPROLOL TARTRATE 25 MG TABLET PO ONE ×2 (16:30→16:45)
--- NOTE | 2018-10-09 19:50 | PDOC PROGRESS REPORT ---
Subjective Progress Note for:: 10/09/18 Subjective:: She feels she is doing a little better. However she still feels some dizziness when she stands up. Denies shortness of breath, no orthopnea or PND. No fever or chills, no chest pain or shortness of breath. Reason For Visit: POSTURAL TACHYCARDIA Physical Exam Vital Signs: Temp Pulse Resp BP Pulse Ox 98.3 F 90 16 127/85 H 100 10/09/18 10:20 10/09/18 13:30 10/09/18 10:20 10/09/18 10:20 10/09/18 10:20 Intake & Output 10/08/18 10/09/18 10/10/18 06:59 06:59 06:59 Intake Total 3000 1000 Balance 3000 1000 Weight 64.8 kg GENERAL: Well-developed, well-nourished female, no acute distress HEENT: Normocephalic/atraumatic NECK supple, no JVD CARDIOVASCULAR: RRR, normal S1-S2, no appreciable murmur LUNGS: CTA bilaterally ABDOMEN: Soft, NT, NL bowel sounds EXTREMITIES: No edema, clubbing, cyanosis NEUROLOGICAL: Alert, oriented x 3, nonfocal Results Laboratory Results: 10/08/18 08:32 10/08/18 08:32 10/09/18 10/09/18 06:10 06:10 Magnesium 1.9 TSH 0.45 L 10/08/18 08:32 Troponin I < 0.012 Impressions: Chest X-Ray 10/08/18 08:31 IMPRESSION: NO ACUTE RADIOGRAPHIC FINDING IN THE CHEST. Assessment & Plan - Diagnosis (1) Tachycardia Is this a current diagnosis for this admission?: Yes (2) Palpitations Is this a current diagnosis for this admission?: Yes (3) Lightheaded Is this a current diagnosis for this admission?: Yes (4) Endometritis following delivery Is this a current diagnosis for this admission?: Yes - Plan Summary Plan Summary: Patient with some improvement. She had refused beta-kem last night because she did not want to take too much medications. She however took this morning dose. Will continue to monitor and continue IV fluids for now. We will continue antibiotics with doxycycline and Flagyl. Patient should have completed antibiotics after the next 1-2 days as she was taking as outpatient. Cardiology evaluation appreciated. Please follow-up echo result. Likely discharge home in a.m.
--- NOTE | 2018-10-09 22:20 | Progress Note ---
Provider Note Provider Note: CARDIOLOGY PROGRESS NOTE by Dr. Kiersten Kovacs on 10/09/2018. SUBJECTIVE: The heart rate is better with less increase his heart rate on standing up. But there is still some episodes where the patient's heart rate still goes up into the 140s when the patient standing up. At that time she has some dizziness and some feeling of generalized weakness. There is no chest pain or discomfort. There is no PND orthopnea or leg edema. There is no TIA CVA symptoms. PHYSICAL EXAMINATION: The patient appears to be well-built and well-nourished. She is slightly anxious, but not in any acute major distress. She is well- groomed. Selected Entries 10/09/18 10/09/18 15:55 20:56 Temperature 98.7 F Temperature Oral Source Pulse Rate 86 Sitting Pulse 115 H Rate Standing Pulse 118 Laying Down 89 Pulse Respiratory 17 Rate Blood Pressure 125/88 H Blood Pressure 100 Mean Sitting BP 136/82 H Laying Down BP 129/70 Standing BP 135/92 BP Location Left Arm BP Position Supine O2 Sat by Pulse 100 Oximetry Oxygen Delivery Room Air Method HEAD: Is atraumatic normocephalic. EYES: Pupils equal round regular react to light accommodation. Extraocular movements are normal. There is no clinical pallor. THERE IS NO SCLERAL ICTERUS. EARS: TYMPANIC MEMBRANES ARE INTACT EXTERNAL AUDITORY CANALS ARE CLEAR. Nose: There is no inflammation of the nasal mucous membrane. There is no nasal polyps. MOUTH: His membranes of mouth are moist tongue is moist. There is no ulcers there is no bleeding from the gums. THROAT: There is no exudates in the throat. There is no redness of the oropharynx. SKIN: There is no petechia or ecchymosis. There is no skin rashes or skin lesions. NECK: Is supple. There is no JVD. Carotids are equal there is no bruit. There is no lymphadenopathy. There is no goiter. There is no accessory muscle respiration in use. There is no lymphadenopathy. LUNGS: Is clear to auscultation percussion without any rhonchi rales or wheezing. There is no chest wall tenderness. HEART: S1-S2 is heard there is no S3 gallop there is no S4 gallop S1 is of normal intensity. There is a systolic murmur left sternal border and apex without radiation. There is no rub. ABDOMEN: Soft there is no hepatosplenic megaly. Bowel sounds are well heard. Her surgical site dressing is clean and dry. EXTREMITIES: Femorals are well felt. There is no femoral bruits. Leg pulses are well felt. There is no pedal edema. There is no DVT or cellulitis. There is no calf tenderness. There is no cyanosis or clubbing. Capillary refill is normal. REACTOR FUELING SUPERVISOR: The patient is conscious slightly drowsy due to anesthetic effect. There is no focal deficit. She is oriented x3. PSYCHIATRIC: The patient judgment and insight are intact her affect is normal 10/08/18 10/09/18 10/09/18 08:32 06:10 06:10 Magnesium 1.9 Troponin I < 0.012 TSH 0.45 L IMPRESSION/RECOMMENDATION: 1. Orthostatic tachycardia: The patient has no evidence of any infection, and the patient seems to have been cured from her endometritis. There is no evidence of dehydration.. In view of the TSH being low, will check the patient's free T3 and free T4 in a.m.. Possibly the patient has POTS(postural orthostatic tachycardia syndrome] agree with hydrating the patient. There is a good degree of response to the patient being on beta-blockers. Will increase the patient's beta-kem. The patient's echocardiogram shows borderline mitral valve prolapse. There is trace mitral regurgitation. No other significant valvular abnormalities seen. Left ventricle ejection fraction is normal. There is no pulmonary hypertension. This has been discussed with the patient. 2. Borderline mitral valve prolapse. 3. History of anxiety. Continue antianxiety agents. 4.. History of endometritis: Patient be treated with antibiotics. Medications reviewed. Beta-kem dose increased. Management plan discussed with the patient, patient's , and the attending physician on the case. Medical decision making is of moderate complexity. 60 minutes spent on this patient with more than 50% of time spent in direct patient care. We will follow with you
--- NOTE | 2018-10-09 23:08 | XCELERA REPORT ---
[address] [address] Transthoracic Echocardiogram Report Name: STEW LÓPEZ Age: 22 yrs Gender: Female : 1995 Patient Status: Inpatient Patient Location: [address] [place], [place] [id number] Study Date: 10/09/2018 02:18 PM Procedure: A two-dimensional transthoracic echocardiogram with color flow and Doppler was performed. Study Quality: Good. Reason For Study: murmur / tachycardia History: murmur / tachycardia. Ordering Physician: KIERSTEN MAYO Performed By: Blanca Tobar Interpretation Summary The left ventricle is normal in size. There is normal left ventricular wall thickness. LV EF is > THAN 60% Left ventricular systolic function is normal. Doppler measurements suggest normal left ventricular diastolic function The left ventricular wall motion is normal. There is no thrombus. The right ventricle is grossly normal size. The right atrium is normal. The left atrial size is normal. There is borderline mitral valve prolapse. There is no vegetation seen on the mitral valve. There is no mitral valve stenosis. There is a trace amount of mitral regurgitation There is no aortic valvular vegetation. There is no aortic valve stenosis There is no LVOT obstruction. No aortic regurgitation is present. There is no tricuspid stenosis. No tricuspid regurgitation. Unable to calculate RVSP due lack of TR jet. There is no pulmonic valvular stenosis. There is a trace amount of pulmonic regurgitation The aortic root is normal size. There is no pericardial effusion. MMode/2D Measurements & Calculations RVDd: 2.2 cm LVIDd: 5.0 cm FS: 33.0 % Ao root diam: 2.7 cm IVSd: 0.78 cm LVIDs: 3.3 cm EDV(Teich): 116.9 ml Ao root area: 5.6 cm2 LVPWd: 1.0 cm ESV(Teich): 45.2 ml EF(Teich): 61.4 % Doppler Measurements & Calculations MV E max marilyn: MV dec slope: Ao V2 max: LV V1 max P.6 cm/sec 122.0 cm/sec 3.9 mmHg MV A max marilyn: 536.5 cm/sec2 Ao max PG: LV V1 max: 82.6 cm/sec MV dec time: 0.17 sec5.9 mmHg 98.6 cm/sec MV E/A: 1.1 PA V2 max: PI end-d marilyn: 91.9 cm/sec 77.9 cm/sec PA max P.4 mmHg Left Ventricle The left ventricle is normal in size. There is normal left ventricular wall thickness. LV EF is > THAN 60%. Left ventricular systolic function is normal. Doppler measurements suggest normal left ventricular diastolic function. The left ventricular wall motion is normal. There is no thrombus. Right Ventricle The right ventricle is grossly normal size. Atria The right atrium is normal. The left atrial size is normal. Mitral Valve There is borderline mitral valve prolapse. There is no vegetation seen on the mitral valve. There is no mitral valve stenosis. There is a trace amount of mitral regurgitation. Aortic Valve There is no aortic valvular vegetation. There is no aortic valve stenosis. There is no LVOT obstruction. No aortic regurgitation is present. Tricuspid Valve There is no tricuspid stenosis. No tricuspid regurgitation. Unable to calculate RVSP due lack of TR jet. Pulmonic Valve There is no pulmonic valvular stenosis. There is a trace amount of pulmonic regurgitation. Great Vessels The aortic root is normal size. The inferior vena cava appeared normal and decreased > 50% with respiration (RAP 5-10 mmHg). Effusions There is no pericardial effusion. : KIERSTEN MAYO > Kiersten Mayo
[2018-10-10 05:46] LABS: ABSOLUTE BASOPHILS # (AUTO) 0.1 10^3/uL (0.0-0.2); ABSOLUTE EOSINOPHILS # (AUTO) 0.2 10^3/uL (0.0-0.6); ABSOLUTE MONOCYTES (AUTO) 0.8 10^3/uL (0.1-1.4); ABSOLUTE NEUT (AUTO) 5.6 10^3/uL (1.7-8.2); BASOPHILS % (AUTO) 0.6 % (0-2); HEMATOCRIT 32.2 % (36.0-47.0); LYMPHOCYTES % (AUTO) 22.8 % (13-45); MEAN CORPUSCULAR HEMOGLOBIN 29.6 pg (27.0-33.4); MEAN CORPUSCULAR HGB CONC 34.2 g/dL (32.0-36.0); MEAN CORPUSCULAR VOLUME 86 fl (80-97); MONOCYTES % (AUTO) 9.7 % (3-13); PLATELET COUNT 386 10^3/uL (150-450); RED BLOOD COUNT 3.73 10^6/uL (3.72-5.28); RED CELL DISTRIBUTION WIDTH 13.3 % (11.5-14.0); SEGMENTED NEUTROPHILS % (AUTO) 64.9 % (42-78); TOTAL CELLS COUNTED % (AUTO) 100 %; WHITE BLOOD COUNT 8.6 10^3/uL (4.0-10.5)
[2018-10-10] MEDS: CLINDAMYCIN HCL 150 MG CAPSULE PO SCH (05:48)
[2018-10-10] MEDS: METRONIDAZOLE 500 MG TABLET PO SCH (05:48)
[2018-10-10 06:07] LABS: ANION GAP 7 (5-19); BLOOD UREA NITROGEN 6 mg/dL (7-20); CALCIUM 9.3 mg/dL (8.4-10.2); CARBON DIOXIDE 27 mmol/L (22-30); CHLORIDE 106 mmol/L (98-107); GLUCOSE 78 mg/dL (75-110); POTASSIUM 4.3 mmol/L (3.6-5.0); SODIUM 139.8 mmol/L (137-145)
[2018-10-10 06:08] VITALS: BP 130/90
[2018-10-10 06:20] LABS: FREE T3 3.4 pg/mL (2.77-5.27); FREE T4 (FREE THYROXINE) 1.44 ng/dL (0.78-2.19)
[2018-10-10 06:34] LABS: THYROID STIMULATING HORMONE 0.49 uIU/mL (0.47-4.68)
[2018-10-10] MEDS: METOPROLOL TARTRATE 25 MG TABLET PO SCH (09:04)
[2018-10-10] MEDS ORDERED: METOPROLOL TARTRATE 25 MG TABLET PO ONE (09:30)
[2018-10-10] MEDS: ENOXAPARIN SODIUM INJ 40 MG/0.4 ML DISP.SYRIN SUBCUT SCH (10:21)
--- NOTE | 2018-10-10 10:38 | PDOC DISCHARGE SUMMARY ---
General - Admit/Disc Date/PCP Admission Date/Primary Care Provider: 10/08/18 10:32 Discharge Date: 10/10/18 - Discharge Diagnosis (1) Palpitations Is this a current diagnosis for this admission?: Yes (2) Tachycardia Is this a current diagnosis for this admission?: Yes (3) Endometritis following delivery Is this a current diagnosis for this admission?: Yes - Additional Information Resuscitation Status: Full Code Discharge Diet: As Tolerated Discharge Activity: Activity As Tolerated Prescriptions: Metoprolol Tartrate [Lopressor 50 mg Tablet] 50 mg PO Q12 #60 tablet Home Medications: Metoprolol Tartrate [Lopressor 50 mg Tablet] 50 mg PO Q12 #60 tablet 10/10/18 History of Present Illness History of Present Illness: STEW LÓPEZ is a 22 year old female who is 20 days from vaginal delivery, who presented with complaint of posterior tachycardia. She feels tachycardic when she gets up from laying to sitting or standing position. She also has some lightheadedness. This has been going on for several weeks. She denies chest pain or shortness of breath. She was seen by the PROJECT MANAGEMENT IT SPECIALIST clinic today and referred to the ED. In the emergency room, patient was found to be tachycardic in the 120s and orthostatic. ED doctor spoke to health economist who recommended admitting patient and treating with a trial of beta-kem. Patient is still breast-feeding. ED physician spoke to PROJECT MANAGEMENT IT SPECIALIST business transformation manager who stated beta-kem okay to use for her. She was referred to hospitalist service for admission. Of note is that patient was admitted to the hospital last week for endometritis and Sirs. She was discharged on clindamycin and Flagyl and reports 2-3 days left of that medication. She denies missing any of her medication. She has felt nauseated since discharge due to the medications but has not vomited. Hospital Course Hospital Course: Patient was admitted for observation. She was on telemetry. She was evaluated by cardiology. She received metoprolol. Dose was increased to 50 mg twice daily. She is feeling better and asymptomatic now. She wants to go home. Cleared for discharge by cardiology. She should follow-up with cardiology outpatient. Physical Exam Vital Signs: Temp Pulse Resp BP Pulse Ox 98.3 F 98 18 130/90 H 100 10/10/18 04:00 10/10/18 04:00 10/10/18 04:00 10/10/18 04:00 10/10/18 04:00 Intake & Output 10/09/18 10/10/18 10/11/18 06:59 06:59 06:59 Intake Total 3000 1950 Balance 3000 1950 Weight 142 lb 13.753 oz 150 lb 2.157 oz General appearance: PRESENT: no acute distress, cooperative Head exam: PRESENT: atraumatic, normocephalic Ear exam: ABSENT: bleeding, drainage Respiratory exam: ABSENT: accessory muscle use Extremities exam: ABSENT: pedal edema Neurological exam: PRESENT: alert, awake, oriented to person, oriented to place, oriented to time, oriented to situation Results Laboratory Results: 10/10/18 04:44 10/10/18 04:44 10/10/18 10/10/18 10/10/18 04:44 04:44 04:44 WBC 8.6 RBC 3.73 Hgb 11.0 L Hct 32.2 L MCV 86 MCH 29.6 MCHC 34.2 RDW 13.3 Plt Count 386 Seg Neutrophils % 64.9 Lymphocytes % 22.8 Monocytes % 9.7 Eosinophils % 2.0 Basophils % 0.6 Absolute Neutrophils 5.6 Absolute Lymphocytes 2.0 Absolute Monocytes 0.8 Absolute Eosinophils 0.2 Absolute Basophils 0.1 Sodium 139.8 Potassium 4.3 Chloride 106 Carbon Dioxide 27 Anion Gap 7 BUN 6 L Creatinine 0.60 Est GFR ( Amer) > 60 Est GFR (Non-Af Amer) > 60 Glucose 78 Calcium 9.3 Magnesium 1.8 TSH 0.49 Free T4 1.44 Free T3 pg/mL 3.40 10/08/18 08:32 Clean Catch Midstream Urine Culture - Final NO GROWTH 2 DAYS 10/08/18 08:32 Troponin I < 0.012 Impressions: Chest X-Ray 10/08/18 08:31 IMPRESSION: NO ACUTE RADIOGRAPHIC FINDING IN THE CHEST. Qualifiers - * PATIENT BEING DISCHARGED WITH ANY OF THE FOLLOWING DIAGNOSIS: No
[2018-10-10] MEDS ORDERED: METOPROLOL TARTRATE 50 MG TABLET PO SCH (22:00)
--- NOTE | 2018-10-10 22:24 | Progress Note ---
Provider Note Provider Note: CARDIOLOGY PROGRESS NOTE by Dr. Kiersten Kovacs on 10/10/2018. OBJECTIVE: Earlier the patient when standing her heart rate did go up to 160, but the patient was a little more anxious. Subsequently the beta-kem had been increased to 50 mg p.o. every 12 hours. This did get the heart rate down to 110 when standing. The patient also recognizes that she is more anxious than usual and it might be a better idea for the patient to stay home. She has no dizziness on standing in spite of the heart rate being in the low 100s. She denies any chest pain or discomfort. There is no PND orthopnea. There is no cough or sputum production. There is no symptoms a UTI. There is no leg edema. PHYSICAL EXAMINATION: The patient is well-built and well-nourished. She is in no acute distress. She is well-groomed. Selected Entries 10/10/18 10/10/18 10:00 12:11 Pulse Rate 65 Respiratory 18 Rate Blood Pressure 130/90 H [Right Upper Arm] O2 Sat by Pulse 100 Oximetry Oxygen Delivery Room Air Method ( includes room air) HEAD: Is atraumatic normocephalic. EYES: Pupils equal round regular react to light accommodation. Extraocular movements are normal. There is no clinical pallor. THERE IS NO SCLERAL ICTERUS. EARS: TYMPANIC MEMBRANES ARE INTACT EXTERNAL AUDITORY CANALS ARE CLEAR. Nose: There is no inflammation of the nasal mucous membrane. There is no nasal polyps. MOUTH: His membranes of mouth are moist tongue is moist. There is no ulcers there is no bleeding from the gums. THROAT: There is no exudates in the throat. There is no redness of the oropharynx. SKIN: There is no petechia or ecchymosis. There is no skin rashes or skin lesions. NECK: Is supple. There is no JVD. Carotids are equal there is no bruit. There is no lymphadenopathy. There is no goiter. There is no accessory muscle respiration in use. There is no lymphadenopathy. LUNGS: Is clear to auscultation percussion without any rhonchi rales or wheezing. There is no chest wall tenderness. HEART: S1-S2 is heard there is no S3 gallop there is no S4 gallop S1 is of normal intensity. There is a systolic murmur left sternal border and apex without radiation. There is no rub. ABDOMEN: Soft there is no hepatosplenic megaly. Bowel sounds are well heard. Her surgical site dressing is clean and dry. EXTREMITIES: Femorals are well felt. There is no femoral bruits. Leg pulses are well felt. There is no pedal edema. There is no DVT or cellulitis. There is no calf tenderness. There is no cyanosis or clubbing. Capillary refill is normal. BLEMISH REMOVER: The patient is conscious awake alert, and oriented x3 there is no focal deficit. She is oriented x3. PSYCHIATRIC: The patient judgment and insight are intact her affect is normal. She appears to be slightly anxious. 10/10/18 04:44 WBC 8.6 RBC 3.73 Hgb 11.0 L Hct 32.2 L MCV 86 MCH 29.6 MCHC 34.2 RDW 13.3 Plt Count 386 Seg Neutrophils % 64.9 Lymphocytes % 22.8 Monocytes % 9.7 Eosinophils % 2.0 Basophils % 0.6 Absolute Neutrophils 5.6 Absolute Lymphocytes 2.0 Absolute Monocytes 0.8 Absolute Eosinophils 0.2 Absolute Basophils 0.1 : IMPRESSION/RECOMMENDATION 1. Orthostatic tachycardia: There is no evidence of infection or dehydration. Patient tolerating beta-blockers. Seems to have improved with increasing beta- kem. Most of her tachycardia now is due to the patient's anxiety. She might do better at home. Note that the patient's free T3, free T4 are within normal limits. Most likely the patient has POTS (postural orthostatic tachycardia syndrome]. Will get a serum catecholamine levels when the patient standing up. 2. Borderline mitral valve prolapse. There is only trace mitral regurgitation, and no other significant abnormality seen on the echocardiogram. This has been discussed with the patient patient's . 3. History of anxiety. Continue antianxiety agents. 4.. History of endometritis: Patient be treated with antibiotics. Resolved Medications reviewed. Beta-kem dose increased. Management plan discussed with the patient, patient's and the identification on the case. Medical decision making is of moderate complexity. 40 minutes spent on this patient with more than 50% of time spent in direct patient care. The patient and the are desirous of having the patient discharged. We will agree with it since cardiac status is stable. Will follow the patient in the office. Denies contact numbers have been given to the patient. Discussed with the attending physician on record and management plan. Will get a 30-day event monitor for the patient. If the patient's symptoms persist will refer the patient to S client success director who specializes in this POTS. Patient, and reassured
== END 2018-10-10 12:54 | disposition home or self-care (01) ==
LOC: ER 08:13 → EH 10:32 → 4N 18:20
PROVIDERS: ADMIT Internal Medicine; ATTEND Internal Medicine
DX: O99.43 Diseases of the circulatory system complicating the puerperium (principal); R00.2 Palpitations; R00.0 Tachycardia, unspecified; O86.12 Endometritis following delivery; O90.89 Other complications of the puerperium, not elsewhere classified; R42 Dizziness and giddiness; R11.0 Nausea; T36.8X5A Adverse effect of other systemic antibiotics, initial encounter; T37.3X5A Adverse effect of other antiprotozoal drugs, initial encounter; O99.345 Other mental disorders complicating the puerperium; F41.9 Anxiety disorder, unspecified; Z83.79 Family history of other diseases of the digestive system; Z83.2 Family history of diseases of the blood and blood-forming organs and certain disorders involving the immune mechanism
CPT/HCPCS: 93005; 99285; 96360; 96361; 36415 ×3; 87040; 87086; 84439; 82383; 83605; 83735 ×2; 84443 ×2; 85025 ×2; 80048; 80053; 81001; 84484; 84481; 82803; 93306; 71045; 93010; S0119; J3490 ×2; J7030 ×2; G0378